=== PATIENT | female | born 1935 | race Two or more races ===

== ENCOUNTER 2022-04-08 12:13 | Emergency (ER) | payer MEDICAID ==
[~2022-04-08] VITALS: Ht 157.5 cm; Wt 75.0 kg
[2022-04-08 13:06] LABS: Basophils # (auto) 0 10 ^3/uL (0-0.2); Basophils % (auto) 0.7 % (0.0-2.0); Eosinophils # (auto) 0.1 10 ^3/uL (0-0.8); Eosinophils % (auto) 2.3 % (0.0-7.0); Hematocrit 33.3 % (36.0-46.0); Hemoglobin 10.7 g/dL (12.2-16.2); Lymphocytes # (auto) 1.7 10 ^3/uL (0.4-5.4); Lymphocytes % (auto) 34.3 % (10.0-50.0); Mean Corpuscular Hemoglobin 29.2 pg (28.0-32.0); Mean Corpuscular Hgb Conc. 32.1 g/dL (32.0-36.0); Mean Corpuscular Volume 90.9 fL (80.0-100.0); Monocytes # (auto) 0.4 10 ^3/uL (0-1.3); Monocytes % (auto) 7.4 % (0.0-12.0); Neutrophils # (auto) 2.7 10 ^3/uL (1.6-8.6); Neutrophils % (auto) 55.3 % (37.0-80.0); Nucleated Red Blood Cells % 0.1 %; Potassium 4.3 mmol/L (3.5-5.1); Red Blood Cells 3.67 10^6/uL (4.0-5.20); White Blood Cell 4.8 10^3/uL (4.4-10.8)
[2022-04-08 13:25] LABS: BUN/Creatinine Ratio 18.8; Bilirubin, Total 0.3 mg/dL (0.2-1.0); CRP High Sensitivity 0.24 mg/dL (< 0.3); Total Protein 7.6 g/dL (6.4-8.2)
[2022-04-08 14:59] VITALS: BP 139/69
== END 2022-04-08 15:00 | disposition home or self-care (01) ==
LOC: EDBD 12:13 → ER 12:13
DX: R51.9 Headache, unspecified (principal); H53.8 Other visual disturbances; I10 Essential (primary) hypertension
CPT/HCPCS: 36415; 70450; 80053; 85025; 85652; 86141; 93005

== ENCOUNTER 2022-07-12 07:59 | Emergency (ER) | payer MEDICAID ==
[~2022-07-12] VITALS: Ht 160 cm; Wt 76.6 kg
[2022-07-12 08:56] LABS: Basophils # (auto) 0 10 ^3/uL (0-0.2); Basophils % (auto) 0.5 % (0.0-2.0); Eosinophils # (auto) 0.1 10 ^3/uL (0-0.8); Eosinophils % (auto) 1.9 % (0.0-7.0); Hematocrit 31.6 % (36.0-46.0); Hemoglobin 10.3 g/dL (12.2-16.2); Lymphocytes # (auto) 1.7 10 ^3/uL (0.4-5.4); Lymphocytes % (auto) 26.2 % (10.0-50.0); Mean Corpuscular Hemoglobin 28.9 pg (28.0-32.0); Mean Corpuscular Hgb Conc. 32.4 g/dL (32.0-36.0); Mean Corpuscular Volume 89.2 fL (80.0-100.0); Monocytes # (auto) 0.5 10 ^3/uL (0-1.3); Monocytes % (auto) 7.2 % (0.0-12.0); Neutrophils # (auto) 4.1 10 ^3/uL (1.6-8.6); Neutrophils % (auto) 64.2 % (37.0-80.0); Nucleated Red Blood Cells % 0.1 %; Red Blood Cells 3.54 10^6/uL (4.0-5.20); Red Cell Distribution Width 14.8 % (11.8-14.3); White Blood Cell 6.3 10^3/uL (4.4-10.8)
[2022-07-12 09:11] LABS: INR 0.93 (0.9-1.15); Partial Thromboplastin Time 27.4 sec (24.6-33.4)
[2022-07-12 09:55] LABS: Potassium 4.7 mmol/L (3.5-5.1)
[2022-07-12 10:03] LABS: Albumin 3.5 g/dL (3.4-5.0); Bilirubin, Total 0.5 mg/dL (0.2-1.0); Calcium 8.7 mg/dL (8.5-10.1)
[2022-07-12 11:02] VITALS: BP 172/82
[2022-07-12 11:44] LABS: Urine Bacteria NONE SEEN /hpf (None Seen); Urine Blood 1+ /uL (Negative); Urine Specific Gravity 1.009 (1.001-1.035); Urine WBC 5 /hpf (0 - 5)
== END 2022-07-12 11:07 | disposition home or self-care (01) ==
LOC: ER 07:59
DX: R04.0 Epistaxis (principal); D64.9 Anemia, unspecified; R51.9 Headache, unspecified; J45.909 Unspecified asthma, uncomplicated; E11.9 Type 2 diabetes mellitus without complications; I10 Essential (primary) hypertension; Z88.6 Allergy status to analgesic agent
CPT/HCPCS: 36415; 70450; 80053; 81001; 84484; 85025; 85610; 85730

== ENCOUNTER 2022-07-27 10:36 | Emergency (ER) | payer MEDICAID ==
[~2022-07-27] VITALS: Ht 157.5 cm; Wt 81.8 kg
[2022-07-27] MEDS ORDERED: IOHEXOL 350 MG/ML 100ML IJ ONE (10:54)
[2022-07-27 11:20] LABS: Basophils # (auto) 0 10 ^3/uL (0-0.2); Basophils % (auto) 0.3 % (0.0-2.0); Eosinophils # (auto) 0.2 10 ^3/uL (0-0.8); Eosinophils % (auto) 2.2 % (0.0-7.0); Hematocrit 31.8 % (36.0-46.0); Hemoglobin 10.4 g/dL (12.2-16.2); Lymphocytes # (auto) 2.3 10 ^3/uL (0.4-5.4); Lymphocytes % (auto) 32.9 % (10.0-50.0); Mean Corpuscular Hemoglobin 29.3 pg (28.0-32.0); Mean Corpuscular Hgb Conc. 32.6 g/dL (32.0-36.0); Mean Corpuscular Volume 89.9 fL (80.0-100.0); Monocytes # (auto) 0.4 10 ^3/uL (0-1.3); Neutrophils # (auto) 4.1 10 ^3/uL (1.6-8.6); Neutrophils % (auto) 58.6 % (37.0-80.0); Red Blood Cells 3.54 10^6/uL (4.0-5.20); Red Cell Distribution Width 14.6 % (11.8-14.3); White Blood Cell 6.9 10^3/uL (4.4-10.8)
[2022-07-27 11:43] LABS: Albumin 3.8 g/dL (3.4-5.0); Calcium 9.3 mg/dL (8.5-10.1)
[2022-07-27 11:52] LABS: BUN/Creatinine Ratio 16.5 (10.0-20.0); Bilirubin, Total 0.3 mg/dL (0.2-1.0); Total Protein 6.8 g/dL (6.4-8.2)
[2022-07-27 12:46] LABS: Potassium 4.4 mmol/L (3.5-5.1)
[2022-07-27] MEDS ORDERED: HYDROcodone-ACET 5/325MG TAB PO ONE (15:15)
[2022-07-27] MEDS ORDERED: KETOROLAC TROMETH 60MG/2ML VIAL IV ONE (16:00)
[2022-07-27 18:42] VITALS: BP 130/69
== END 2022-07-27 18:46 | disposition home or self-care (01) ==
LOC: EDBD 10:36 → ER 10:36 → EDSEX 10:36 → ER 18:46
DX: S00.33XA Contusion of nose, initial encounter (principal); S00.83XA Contusion of other part of head, initial encounter; S20.212A Contusion of left front wall of thorax, initial encounter; R07.89 Other chest pain; R04.0 Epistaxis; M54.2 Cervicalgia; E07.9 Disorder of thyroid, unspecified; R06.02 Shortness of breath; Z88.5 Allergy status to narcotic agent; Z79.899 Other long term (current) drug therapy; V43.62XA Car passenger injured in collision with other type car in traffic accident, initial encounter; Y93.89 Activity, other specified; Y92.488 Other paved roadways as the place of occurrence of the external cause; Y99.8 Other external cause status
CPT/HCPCS: 36415; 70450; 71260; 72125; 74177; 80053; 83735; 83880; 84484; 85025; 93005; 96374; 99285; J1885; J7030; Q9967

== ENCOUNTER 2022-09-26 12:24 | Inpatient (IN) | payer MEDICAID ==
[~2022-09-26] VITALS: Ht 147.3 cm; Wt 78.6 kg
[~2022-09-26 12:24] MED LIST: AMBR10TA4 PO; AMLO1TAB22 PO; AZIT-43 PO; BENA40TA83 PO; ESCI10TA PO; FURO1TAB33 PO; OMEP20TA PO; RIOC1TAB14 PO
[2022-09-26 13:35] LABS: Basophils # (auto) 0 10 ^3/uL (0-0.2); Basophils % (auto) 0.7 % (0.0-2.0); Eosinophils # (auto) 0.1 10 ^3/uL (0-0.8); Hematocrit 30.1 % (36.0-46.0); Hemoglobin 9.7 g/dL (12.2-16.2); Lymphocytes # (auto) 1.2 10 ^3/uL (0.4-5.4); Lymphocytes % (auto) 20.4 % (10.0-50.0); Mean Corpuscular Hemoglobin 28.6 pg (28.0-32.0); Mean Corpuscular Hgb Conc. 32.2 g/dL (32.0-36.0); Mean Corpuscular Volume 88.8 fL (80.0-100.0); Monocytes # (auto) 0.3 10 ^3/uL (0-1.3); Monocytes % (auto) 5.4 % (0.0-12.0); Neutrophils # (auto) 4.1 10 ^3/uL (1.6-8.6); Neutrophils % (auto) 71.5 % (37.0-80.0); Nucleated Red Blood Cells % 0.1 %; Red Blood Cells 3.39 10^6/uL (4.0-5.20); Red Cell Distribution Width 14.1 % (11.8-14.3); White Blood Cell 5.8 10^3/uL (4.4-10.8)
[2022-09-26 14:18] LABS: Potassium 4.5 mmol/L (3.5-5.1)
[2022-09-26 14:26] LABS: Albumin 3.5 g/dL (3.4-5.0); BUN/Creatinine Ratio 14.7 (10.0-20.0); Bilirubin, Total 0.2 mg/dL (0.2-1.0); Calcium 8.1 mg/dL (8.5-10.1); Total Protein 6.4 g/dL (6.4-8.2)
[2022-09-26] MEDS ORDERED: FUROSEMIDE 40 MG/4 ML VIAL IV ONE (16:00)
[2022-09-26] MEDS ORDERED: MORPHINE SULFATE INJ 2 MG/ml SYRG IV PRN ×2 (17:45→18:30)
[2022-09-26] MEDS ORDERED: DOCUSATE SOD 100 MG CAP PO PRN (17:45)
[2022-09-26] MEDS ORDERED: ONDANSETRON HCL 4 MG/2 ML VIAL IV PRN (17:45)
[2022-09-26] MEDS ORDERED: ALBUTEROL SULF 2.5 MG/0.5ML(0.5%) NEB SOLN NEB PRN (17:45)
[2022-09-26] MEDS ORDERED: HYDROcodone-ACET 5/325MG TAB PO PRN (17:45)
[2022-09-26] MEDS ORDERED: IPRATROPIUM BROM 0.5 MG/2.5ML INH SOL NEB PRN (17:45)
[2022-09-26] MEDS ORDERED: NITROGLYCERIN 0.4 MG SL TAB SL PRN (17:45)
[2022-09-26] MEDS ORDERED: ACETAMINOPHEN 325 MG TAB PO PRN (17:45)
[2022-09-26 18:00] VITALS: BP 116/56
[2022-09-26] MEDS: SODIUM CHLOR 0.9% PF (SALINE LOCK) 10ML VIAL/SYR IV SCH (21:02)
[2022-09-27] MEDS: SODIUM CHLOR 0.9% PF (SALINE LOCK) 10ML VIAL/SYR IV SCH ×3 (06:30→22:26)
[2022-09-27 06:42] LABS: Albumin 3.3 g/dL (3.4-5.0); Basophils # (auto) 0 10 ^3/uL (0-0.2); Basophils % (auto) 0.8 % (0.0-2.0); Calcium 8.2 mg/dL (8.5-10.1); Eosinophils # (auto) 0.1 10 ^3/uL (0-0.8); Eosinophils % (auto) 2.1 % (0.0-7.0); Hematocrit 28.7 % (36.0-46.0); Hemoglobin 9.3 g/dL (12.2-16.2); Lymphocytes # (auto) 1.5 10 ^3/uL (0.4-5.4); Lymphocytes % (auto) 24.8 % (10.0-50.0); Mean Corpuscular Hemoglobin 28.4 pg (28.0-32.0); Mean Corpuscular Hgb Conc. 32.4 g/dL (32.0-36.0); Mean Corpuscular Volume 87.6 fL (80.0-100.0); Monocytes # (auto) 0.4 10 ^3/uL (0-1.3); Monocytes % (auto) 7.4 % (0.0-12.0); Neutrophils # (auto) 3.9 10 ^3/uL (1.6-8.6); Neutrophils % (auto) 64.9 % (37.0-80.0); Potassium 4.1 mmol/L (3.5-5.1); Red Blood Cells 3.27 10^6/uL (4.0-5.20); Red Cell Distribution Width 13.8 % (11.8-14.3)
[2022-09-27 06:45] LABS: BUN/Creatinine Ratio 16.2 (10.0-20.0); Bilirubin, Total 0.3 mg/dL (0.2-1.0); Total Protein 6.4 g/dL (6.4-8.2)
[2022-09-27] MEDS: cefTRIAXone 1GM/50ML D5W 50 ML IV SCH (09:12)
[2022-09-27] MEDS: AMBRISENTAN 10 MG PO SCH (10:00)
[2022-09-27] MEDS: AZITHROMYCIN 500MG/ 250ML 250 ML IV SCH (10:12)
[2022-09-27] MEDS: amLODIPine BESYLATE 5 MG TAB PO SCH (10:14)
[2022-09-27] MEDS: CITALOPRAM HYDROBR 20 MG TAB PO SCH (10:14)
[2022-09-27] MEDS: LISINOPRIL 20 MG TAB PO SCH (10:14)
[2022-09-27] MEDS: FUROSEMIDE 20 MG TAB PO SCH (10:14)
[2022-09-27 17:00] VITALS: BP 143/48
[2022-09-27 21:52] VITALS: BP 134/50
[2022-09-27] MEDS ORDERED: TEMAZEPAM 15 MG CAP PO PRN (22:45)
[2022-09-28 04:30] VITALS: BP 135/45
[2022-09-28] MEDS: SODIUM CHLOR 0.9% PF (SALINE LOCK) 10ML VIAL/SYR IV SCH ×3 (06:12→22:15)
[2022-09-28 07:00] LABS: Basophils # (auto) 0 10 ^3/uL (0-0.2); Basophils % (auto) 0.7 % (0.0-2.0); Eosinophils # (auto) 0.1 10 ^3/uL (0-0.8); Eosinophils % (auto) 2.5 % (0.0-7.0); Hematocrit 28.6 % (36.0-46.0); Hemoglobin 9.4 g/dL (12.2-16.2); Lymphocytes # (auto) 1.5 10 ^3/uL (0.4-5.4); Mean Corpuscular Hgb Conc. 32.8 g/dL (32.0-36.0); Mean Corpuscular Volume 88.4 fL (80.0-100.0); Monocytes # (auto) 0.4 10 ^3/uL (0-1.3); Monocytes % (auto) 8.1 % (0.0-12.0); Neutrophils # (auto) 2.7 10 ^3/uL (1.6-8.6); Neutrophils % (auto) 57.7 % (37.0-80.0); Nucleated Red Blood Cells % 0.1 %; Red Blood Cells 3.24 10^6/uL (4.0-5.20); Red Cell Distribution Width 13.5 % (11.8-14.3); White Blood Cell 4.7 10^3/uL (4.4-10.8)
[2022-09-28 07:13] LABS: BUN/Creatinine Ratio 20.6 (10.0-20.0); Calcium 8.4 mg/dL (8.5-10.1); Potassium 3.9 mmol/L (3.5-5.1)
[2022-09-28 08:00] VITALS: BP 154/63
[2022-09-28] MEDS: CITALOPRAM HYDROBR 20 MG TAB PO SCH (09:26)
[2022-09-28] MEDS: LISINOPRIL 20 MG TAB PO SCH (09:27)
[2022-09-28] MEDS: FUROSEMIDE 20 MG TAB PO SCH (09:27)
[2022-09-28] MEDS: AZITHROMYCIN 500MG/ 250ML 250 ML IV SCH (09:28)
[2022-09-28] MEDS: amLODIPine BESYLATE 5 MG TAB PO SCH (09:28)
[2022-09-28] MEDS: cefTRIAXone 1GM/50ML D5W 50 ML IV SCH (09:28)
[2022-09-28] MEDS: AMBRISENTAN 10 MG PO SCH (09:36)
[2022-09-28 12:00] VITALS: BP 147/57
[2022-09-28] MEDS ORDERED: DexAMETHasone SOD PHOS 10MG/1ML VIAL INJ IV ONE (14:15)
[2022-09-28 16:00] VITALS: BP 130/63
[2022-09-28 20:00] VITALS: BP 150/68
[2022-09-28 22:00] VITALS: BP 150/68
[2022-09-29 05:00] VITALS: BP 158/69
[2022-09-29] MEDS: SODIUM CHLOR 0.9% PF (SALINE LOCK) 10ML VIAL/SYR IV SCH ×3 (06:15→22:00)
[2022-09-29 06:30] LABS: Basophils # (auto) 0 10 ^3/uL (0-0.2); Basophils % (auto) 0.2 % (0.0-2.0); Eosinophils # (auto) 0 10 ^3/uL (0-0.8); Hematocrit 31.2 % (36.0-46.0); Hemoglobin 10.3 g/dL (12.2-16.2); Lymphocytes # (auto) 0.9 10 ^3/uL (0.4-5.4); Lymphocytes % (auto) 18.2 % (10.0-50.0); Mean Corpuscular Hemoglobin 28.7 pg (28.0-32.0); Monocytes # (auto) 0.1 10 ^3/uL (0-1.3); Monocytes % (auto) 1.7 % (0.0-12.0); Neutrophils # (auto) 4.1 10 ^3/uL (1.6-8.6); Neutrophils % (auto) 79.9 % (37.0-80.0); Nucleated Red Blood Cells % 0.2 %; Red Blood Cells 3.59 10^6/uL (4.0-5.20); Red Cell Distribution Width 13.5 % (11.8-14.3); White Blood Cell 5.1 10^3/uL (4.4-10.8)
[2022-09-29 06:44] LABS: BUN/Creatinine Ratio 28.8 (10.0-20.0); Calcium 8.7 mg/dL (8.5-10.1); Potassium 4.1 mmol/L (3.5-5.1)
[2022-09-29 09:00] VITALS: BP 115/61
[2022-09-29] MEDS: FUROSEMIDE 20 MG TAB PO SCH (09:35)
[2022-09-29] MEDS: cefTRIAXone 1GM/50ML D5W 50 ML IV SCH (09:35)
[2022-09-29] MEDS: AZITHROMYCIN 500MG/ 250ML 250 ML IV SCH (09:35)
[2022-09-29] MEDS: CITALOPRAM HYDROBR 20 MG TAB PO SCH (09:35)
[2022-09-29] MEDS: amLODIPine BESYLATE 5 MG TAB PO SCH (09:36)
[2022-09-29] MEDS: DexAMETHasone SOD PHOS 10MG/1ML VIAL INJ IV SCH (09:36)
[2022-09-29] MEDS: AMBRISENTAN 10 MG PO SCH (09:36)
[2022-09-29] MEDS: LISINOPRIL 20 MG TAB PO SCH (09:36)
[2022-09-29 17:00] VITALS: BP 145/58
[2022-09-29 20:00] VITALS: BP 110/57
[2022-09-29 22:00] VITALS: BP 142/51
[2022-09-30 05:00] VITALS: BP 184/85
[2022-09-30] MEDS ORDERED: hydrALAZINE HCL 20 MG/ML VL IV PRN (05:00)
[2022-09-30] MEDS: SODIUM CHLOR 0.9% PF (SALINE LOCK) 10ML VIAL/SYR IV SCH ×2 (05:19→14:00)
[2022-09-30 06:17] LABS: Basophils # (auto) 0 10 ^3/uL (0-0.2); Basophils % (auto) 0.2 % (0.0-2.0); Eosinophils # (auto) 0 10 ^3/uL (0-0.8); Hemoglobin 11.2 g/dL (12.2-16.2); Lymphocytes # (auto) 1.5 10 ^3/uL (0.4-5.4); Lymphocytes % (auto) 17.4 % (10.0-50.0); Mean Corpuscular Hemoglobin 28.7 pg (28.0-32.0); Mean Corpuscular Hgb Conc. 33.1 g/dL (32.0-36.0); Mean Corpuscular Volume 86.6 fL (80.0-100.0); Monocytes # (auto) 0.5 10 ^3/uL (0-1.3); Monocytes % (auto) 6.1 % (0.0-12.0); Neutrophils # (auto) 6.7 10 ^3/uL (1.6-8.6); Neutrophils % (auto) 76.3 % (37.0-80.0); Red Blood Cells 3.92 10^6/uL (4.0-5.20); Red Cell Distribution Width 13.5 % (11.8-14.3); White Blood Cell 8.8 10^3/uL (4.4-10.8)
[2022-09-30 06:28] LABS: Potassium 4.1 mmol/L (3.5-5.1)
[2022-09-30 06:41] LABS: Calcium 8.8 mg/dL (8.5-10.1)
[2022-09-30 09:00] VITALS: BP 152/52
[2022-09-30] MEDS: AMBRISENTAN 10 MG PO SCH (10:00)
[2022-09-30] MEDS: cefTRIAXone 1GM/50ML D5W 50 ML IV SCH (10:02)
[2022-09-30] MEDS: AZITHROMYCIN 500MG/ 250ML 250 ML IV SCH (10:04)
[2022-09-30] MEDS: DexAMETHasone SOD PHOS 10MG/1ML VIAL INJ IV SCH (10:05)
[2022-09-30] MEDS: LISINOPRIL 20 MG TAB PO SCH (10:06)
[2022-09-30] MEDS: FUROSEMIDE 20 MG TAB PO SCH (10:06)
[2022-09-30] MEDS: CITALOPRAM HYDROBR 20 MG TAB PO SCH (10:06)
[2022-09-30] MEDS: amLODIPine BESYLATE 5 MG TAB PO SCH (10:07)
[2022-09-30] MEDS ORDERED: AMOX500T86 PO (12:25)
[2022-09-30] MEDS ORDERED: PRED20TA2 PO (12:25)
[2022-09-30 13:00] VITALS: BP 136/74
== END 2022-09-30 16:30 | disposition home or self-care (01) | DRG 137 ==
LOC: ER 12:24 → TELE 17:55 → TELE-CENTR 09-27 16:17
PROVIDERS: ADMIT Nurse Practitioner Family; ATTEND Internal Medicine Pulmonary Disease
DX: J15.6 Pneumonia due to other Gram-negative bacteria (principal); I27.20 Pulmonary hypertension, unspecified; J96.11 Chronic respiratory failure with hypoxia; J44.1 Chronic obstructive pulmonary disease with (acute) exacerbation; I11.0 Hypertensive heart disease with heart failure; I50.32 Chronic diastolic (congestive) heart failure; J44.0 Chronic obstructive pulmonary disease with (acute) lower respiratory infection; E66.01 Morbid (severe) obesity due to excess calories; E11.9 Type 2 diabetes mellitus without complications; Z88.6 Allergy status to analgesic agent; Z90.49 Acquired absence of other specified parts of digestive tract; Z68.36 Body mass index [BMI] 36.0-36.9, adult; Z88.8 Allergy status to other drugs, medicaments and biological substances
CPT/HCPCS: 36415; 71045; 78452; 80048; 80053; 83880; 84484; 85025; 87081; 93005; 93017; 99291; G0378; J0696; J1100

== ENCOUNTER 2022-12-06 11:01 | Inpatient (IN) | payer MEDICAID ==
[~2022-12-06] VITALS: Ht 160 cm; Wt 85.0 kg
[~2022-12-06 11:01] MED LIST changes: +AMOX500T86 PO; -AZIT-43 PO; +PRED20TA2 PO
[2022-12-06 11:57] LABS: Base Excess 3.8 mmol/L (-2.0-2.0)
[2022-12-06 12:10] LABS: Basophils # (auto) 0 10 ^3/uL (0-0.2); Basophils % (auto) 0.5 % (0.0-2.0); Eosinophils # (auto) 0.2 10 ^3/uL (0-0.8); Hemoglobin 8.3 g/dL (12.2-16.2); Lymphocytes # (auto) 1.1 10 ^3/uL (0.4-5.4); Monocytes # (auto) 0.4 10 ^3/uL (0-1.3); Neutrophils # (auto) 3.5 10 ^3/uL (1.6-8.6); Red Cell Distribution Width 15.1 % (11.8-14.3); White Blood Cell 5.2 10^3/uL (4.4-10.8)
[2022-12-06 12:12] LABS: Eosinophils % (auto) 3.5 % (0.0-7.0); Hematocrit 25.7 % (36.0-46.0); Lymphocytes % (auto) 20.5 % (10.0-50.0); Mean Corpuscular Hgb Conc. 32.4 g/dL (32.0-36.0); Mean Corpuscular Volume 86.6 fL (80.0-100.0); Monocytes % (auto) 7.8 % (0.0-12.0); Neutrophils % (auto) 67.7 % (37.0-80.0); Red Blood Cells 2.97 10^6/uL (4.0-5.20)
[2022-12-06] MEDS ORDERED: FUROSEMIDE 20 MG/2 ML VIAL IV ONE (12:15)
[2022-12-06] MEDS ORDERED: ASPirin-EC 325mg tab PO ONE (12:15)
[2022-12-06 12:25] LABS: INR 0.98 (0.9-1.15); Prothrombin Time 10.3 sec (9.3-11.8)
[2022-12-06 12:47] LABS: Albumin 3.9 g/dL (3.2-4.8); Alkaline Phosphatase 29 U/L (46-116); Anion Gap 3.2 (5-15); Aspartate Aminotransferase 9 U/L (13-40); Bilirubin, Total 0.4 mg/dL (0.2-1.0); Blood Urea Nitrogen 16 mg/dL (9-23); Calcium 8.7 mg/dL (8.5-10.1); Carbon Dioxide 31.8 mmol/L (20-30); Chloride 100 mmol/L (98-107); Glucose 100 mg/dL (74-106); Potassium 4.7 mmol/L (3.5-5.1); Sodium 135 mmol/L (136-145); Total Protein 5.9 g/dL (5.7-8.2)
[2022-12-06 12:55] LABS: Alanine Aminotransferase < 9 U/L (7-40)
[2022-12-06 13:13] VITALS: PULSE 85; RESP 18; O2SAT 94
[2022-12-06 13:51] LABS: Urine Bacteria FEW /hpf (None Seen); Urine Blood Negative /uL (Negative); Urine Clarity Clear (Clear); Urine Color Colorless (Yellow); Urine Protein, UAD Negative (Negative); Urine Specific Gravity 1.004 (1.001-1.035); Urine Urobilinogen Normal (Negative); Urine WBC 1 /hpf (0 - 5); Urine pH 5.5 (5.0-8.0)
[2022-12-06] MEDS ORDERED: ALBUTEROL SULF 2.5 MG/0.5ML(0.5%) NEB SOLN NEB PRN (14:30)
[2022-12-06] MEDS ORDERED: NITROGLYCERIN 0.4 MG SL TAB SL PRN (14:30)
[2022-12-06] MEDS ORDERED: DEXTROSE (50%) 50ML SYRG IV PRN (14:30)
[2022-12-06] MEDS ORDERED: AZITHROMYCIN 500MG/ 250ML 250 ML IV ONE (14:30)
[2022-12-06] MEDS ORDERED: MORPHINE SULFATE INJ 2 MG/ml SYRG IV PRN (14:30)
[2022-12-06] MEDS ORDERED: cefTRIAXone 1GM/50ML D5W 50 ML IV ONE (14:30)
[2022-12-06 14:38] VITALS: BP 156/69; PULSE 90; RESP 18; TEMP 98; O2SAT 96
[2022-12-06 15:38] LABS: COVID19 ANTIGEN SOFIA FIA NEGATIVE (NEGATIVE)
[2022-12-06 15:41] LABS: Respiratory Syncytial Virus Ag Negative
[2022-12-06 15:42] LABS: Rapid Influenza A Negative (Negative); Rapid Influenza B Negative (Negative)
[2022-12-06 16:06] LABS: LDL Cholesterol 109 mg/dL (< 100); Triglycerides 119 mg/dL (< 150)
[2022-12-06 16:08] LABS: Cholesterol 199 mg/dL (< 200); HDL Cholesterol 64 mg/dL (40-59)
[2022-12-06] MEDS: ACCU-CHEK COMFORT CURVE STRIP VI SCH ×2 (17:30→22:00)
[2022-12-06] MEDS: InsuLIN REG 1unit/0.01ml Soln (100units/ml) SC SCH ×2 (17:30→22:00)
[2022-12-06 17:40] LABS: Anisocytosis Slight; Platelet Estimate Adequate
[2022-12-06] MEDS: IPRATROPIUM BROM 0.5 MG/2.5ML INH SOL NEB SCH ×2 (18:50→22:38)
[2022-12-06] MEDS: ALBUTEROL SULF 2.5 MG/0.5ML(0.5%) NEB SOLN NEB SCH ×2 (18:50→22:39)
[2022-12-06 19:31] VITALS: PULSE 81; RESP 19; O2SAT 95
[2022-12-06] MEDS: AMBRISENTAN 10 MG PO SCH (22:00)
[2022-12-06 22:39] VITALS: PULSE 83; RESP 18; O2SAT 94
[2022-12-06 22:45] VITALS: PULSE 78; RESP 18; O2SAT 100
[2022-12-07] VITALS (16 sets, daily range): BP systolic 104–138; BP diastolic 32–75; PULSE 61–97; RESP 16–22; TEMP 97.7–98.8; O2SAT 90–100
[2022-12-07] MEDS: IPRATROPIUM BROM 0.5 MG/2.5ML INH SOL NEB SCH ×6 (02:00→22:44)
[2022-12-07] MEDS: ALBUTEROL SULF 2.5 MG/0.5ML(0.5%) NEB SOLN NEB SCH ×6 (02:00→22:43)
[2022-12-07 06:56] LABS: Basophils # (auto) 0 10 ^3/uL (0-0.2); Eosinophils # (auto) 0.2 10 ^3/uL (0-0.8); Hemoglobin 8.4 g/dL (12.2-16.2); Lymphocytes # (auto) 1.5 10 ^3/uL (0.4-5.4); Monocytes # (auto) 0.5 10 ^3/uL (0-1.3); Nucleated Red Blood Cells % 0.1 %
[2022-12-07 06:58] LABS: Basophils % (auto) 0.5 % (0.0-2.0); Eosinophils % (auto) 3.7 % (0.0-7.0); Hematocrit 25.4 % (36.0-46.0); Lymphocytes % (auto) 28.3 % (10.0-50.0); Mean Corpuscular Hemoglobin 28.5 pg (28.0-32.0); Mean Corpuscular Volume 86.4 fL (80.0-100.0); Monocytes % (auto) 10.1 % (0.0-12.0); Neutrophils % (auto) 57.4 % (37.0-80.0); Red Blood Cells 2.94 10^6/uL (4.0-5.20); Red Cell Distribution Width 15.1 % (11.8-14.3); White Blood Cell 5.2 10^3/uL (4.4-10.8)
[2022-12-07 07:31] LABS: Albumin 3.8 g/dL (3.2-4.8); Alkaline Phosphatase 25 U/L (46-116); Anion Gap 1.9 (5-15); Aspartate Aminotransferase 20 U/L (13-40); Blood Urea Nitrogen 12 mg/dL (9-23); Calcium 8.6 mg/dL (8.5-10.1); Carbon Dioxide 36.1 mmol/L (20-30); Chloride 100 mmol/L (98-107); Glucose 89 mg/dL (74-106); Potassium 4.8 mmol/L (3.5-5.1); Sodium 138 mmol/L (136-145)
[2022-12-07 07:32] LABS: Bilirubin, Total 0.4 mg/dL (0.2-1.0); Total Protein 5.9 g/dL (5.7-8.2)
[2022-12-07 07:34] LABS: Alanine Aminotransferase < 9 U/L (7-40)
[2022-12-07] MEDS: InsuLIN REG 1unit/0.01ml Soln (100units/ml) SC SCH ×4 (08:39→21:53)
[2022-12-07] MEDS: ACCU-CHEK COMFORT CURVE STRIP VI SCH ×4 (08:39→21:52)
[2022-12-07] MEDS: BENAZEPRIL HCL 10 MG TAB PO SCH (11:02)
[2022-12-07] MEDS: amLODIPine BESYLATE 5 MG TAB PO SCH (11:02)
[2022-12-07] MEDS: ASPirin 81 mg TAB PO SCH (11:02)
[2022-12-07] MEDS: PANTOPRAZOLE 40 MG TAB PO SCH (11:03)
[2022-12-07] MEDS: AMBRISENTAN 10 MG PO SCH (11:04)
[2022-12-07] MEDS: ENOXAPARIN SOD 40 MG/0.4 ML SYRINGE SC SCH (11:05)
[2022-12-07] MEDS: AZITHROMYCIN 500MG/ 250ML 250 ML IV SCH (11:07)
[2022-12-07] MEDS: cefTRIAXone 1GM/50ML D5W 50 ML IV SCH (11:07)
[2022-12-07] MEDS: FUROSEMIDE 20 MG/2 ML VIAL IV SCH (11:07)
[2022-12-07] MEDS: Escitalopram Oxalate (Lexapro) 10 MG TABLET PO SCH (11:08)
[2022-12-07] MEDS ORDERED: methylPREDNISolone SOD SUCC 40 MG/ML VL IV ONE (15:00)
[2022-12-07] MEDS: ACETAMINOPHEN 325 MG TAB PO PRN (16:40)
[2022-12-07 18:36] LABS: % Iron Saturation 15.7 % (15-50)
[2022-12-07] MEDS: methylPREDNISolone SOD SUCC 40 MG/ML VL IV SCH (21:24)
[2022-12-08] VITALS (19 sets, daily range): BP systolic 110–132; BP diastolic 39–76; PULSE 65–99; RESP 16–20; TEMP 97.9–98.6; O2SAT 96–100
[2022-12-08] MEDS: ALBUTEROL SULF 2.5 MG/0.5ML(0.5%) NEB SOLN NEB SCH ×6 (02:24→22:51)
[2022-12-08] MEDS: IPRATROPIUM BROM 0.5 MG/2.5ML INH SOL NEB SCH ×6 (02:24→22:50)
[2022-12-08] MEDS: methylPREDNISolone SOD SUCC 40 MG/ML VL IV SCH ×3 (06:09→21:27)
[2022-12-08] MEDS: ACCU-CHEK COMFORT CURVE STRIP VI SCH ×4 (06:17→21:28)
[2022-12-08] MEDS: InsuLIN REG 1unit/0.01ml Soln (100units/ml) SC SCH ×4 (06:26→22:15)
[2022-12-08 07:16] LABS: Basophils # (auto) 0 10 ^3/uL (0-0.2); Basophils % (auto) 0.2 % (0.0-2.0); Eosinophils # (auto) 0 10 ^3/uL (0-0.8); Hematocrit 26.5 % (36.0-46.0); Hemoglobin 8.6 g/dL (12.2-16.2); Lymphocytes # (auto) 0.6 10 ^3/uL (0.4-5.4); Lymphocytes % (auto) 9.7 % (10.0-50.0); Mean Corpuscular Hemoglobin 28.3 pg (28.0-32.0); Mean Corpuscular Hgb Conc. 32.5 g/dL (32.0-36.0); Mean Corpuscular Volume 87.1 fL (80.0-100.0); Monocytes # (auto) 0.1 10 ^3/uL (0-1.3); Monocytes % (auto) 1.1 % (0.0-12.0); Neutrophils # (auto) 5.3 10 ^3/uL (1.6-8.6); Red Blood Cells 3.05 10^6/uL (4.0-5.20)
[2022-12-08 07:55] LABS: Albumin 3.8 g/dL (3.2-4.8); Alkaline Phosphatase 27 U/L (46-116); Anion Gap 2.7 (5-15); Aspartate Aminotransferase 11 U/L (13-40); BUN/Creatinine Ratio 22.1 (10.0-20.0); Blood Urea Nitrogen 23 mg/dL (9-23); Calcium 8.7 mg/dL (8.5-10.1); Carbon Dioxide 34.3 mmol/L (20-30); Chloride 100 mmol/L (98-107); Glucose 188 mg/dL (74-106); Potassium 4.7 mmol/L (3.5-5.1); Sodium 137 mmol/L (136-145)
[2022-12-08 07:56] LABS: Bilirubin, Total 0.3 mg/dL (0.2-1.0); Total Protein 6.1 g/dL (5.7-8.2)
[2022-12-08 08:00] LABS: Alanine Aminotransferase < 9 U/L (7-40)
[2022-12-08] MEDS: cefTRIAXone 1GM/50ML D5W 50 ML IV SCH (09:50)
[2022-12-08] MEDS: AMBRISENTAN 10 MG PO SCH (09:51)
[2022-12-08] MEDS: Escitalopram Oxalate (Lexapro) 10 MG TABLET PO SCH (09:51)
[2022-12-08] MEDS: ENOXAPARIN SOD 40 MG/0.4 ML SYRINGE SC SCH (09:52)
[2022-12-08] MEDS: FUROSEMIDE 20 MG/2 ML VIAL IV SCH ×2 (09:52→21:27)
[2022-12-08] MEDS: ASPirin 81 mg TAB PO SCH (09:53)
[2022-12-08] MEDS: PANTOPRAZOLE 40 MG TAB PO SCH (09:53)
[2022-12-08] MEDS: amLODIPine BESYLATE 5 MG TAB PO SCH (09:53)
[2022-12-08] MEDS: BENAZEPRIL HCL 10 MG TAB PO SCH (10:00)
[2022-12-08] MEDS: AZITHROMYCIN 500MG/ 250ML 250 ML IV SCH (11:19)
[2022-12-08] MEDS ORDERED: guaiFENesin-DM 100/10mg/5ml SYR PO PRN (11:30)
[2022-12-08] MEDS ORDERED: guaiFENesin-DM 100/10mg/5ml SYR PO ONE (11:30)
[2022-12-08] MEDS: ACETAMINOPHEN 325 MG TAB PO PRN ×2 (16:14→21:54)
[2022-12-09] VITALS (21 sets, daily range): BP systolic 113–150; BP diastolic 38–74; PULSE 75–95; RESP 14–18; TEMP 98.1–99; O2SAT 95–100
[2022-12-09] MEDS: IPRATROPIUM BROM 0.5 MG/2.5ML INH SOL NEB SCH ×6 (03:08→22:19)
[2022-12-09] MEDS: ALBUTEROL SULF 2.5 MG/0.5ML(0.5%) NEB SOLN NEB SCH ×6 (03:08→22:19)
[2022-12-09] MEDS: FUROSEMIDE 20 MG/2 ML VIAL IV SCH ×2 (05:24→19:09)
[2022-12-09] MEDS: methylPREDNISolone SOD SUCC 40 MG/ML VL IV SCH ×3 (05:24→23:49)
[2022-12-09] MEDS: ACCU-CHEK COMFORT CURVE STRIP VI SCH ×4 (05:26→23:47)
[2022-12-09] MEDS: InsuLIN REG 1unit/0.01ml Soln (100units/ml) SC SCH ×4 (05:45→23:48)
[2022-12-09 08:35] LABS: Basophils # (auto) 0 10 ^3/uL (0-0.2); Eosinophils # (auto) 0 10 ^3/uL (0-0.8); Hematocrit 27.8 % (36.0-46.0); Hemoglobin 8.7 g/dL (12.2-16.2); Lymphocytes # (auto) 0.8 10 ^3/uL (0.4-5.4); Lymphocytes % (auto) 5.7 % (10.0-50.0); Mean Corpuscular Hemoglobin 27.3 pg (28.0-32.0); Mean Corpuscular Hgb Conc. 31.5 g/dL (32.0-36.0); Mean Corpuscular Volume 86.6 fL (80.0-100.0); Monocytes # (auto) 0.4 10 ^3/uL (0-1.3); Monocytes % (auto) 3.2 % (0.0-12.0); Neutrophils # (auto) 12.5 10 ^3/uL (1.6-8.6); Neutrophils % (auto) 91.1 % (37.0-80.0); Nucleated Red Blood Cells % 0.1 %; Red Blood Cells 3.21 10^6/uL (4.0-5.20); Red Cell Distribution Width 15.3 % (11.8-14.3); White Blood Cell 13.8 10^3/uL (4.4-10.8)
[2022-12-09 08:52] LABS: Chloride 95 mmol/L (98-107); Potassium 4.4 mmol/L (3.5-5.1); Sodium 135 mmol/L (136-145)
[2022-12-09 08:53] LABS: Anion Gap 6.6 (5-15); Carbon Dioxide 33.4 mmol/L (20-30)
[2022-12-09 08:54] LABS: Calcium 9.1 mg/dL (8.5-10.1)
[2022-12-09 08:58] LABS: BUN/Creatinine Ratio 30.9 (10.0-20.0); Blood Urea Nitrogen 29 mg/dL (9-23); Glucose 160 mg/dL (74-106)
[2022-12-09] MEDS: cefTRIAXone 1GM/50ML D5W 50 ML IV SCH (09:43)
[2022-12-09] MEDS: BENAZEPRIL HCL 10 MG TAB PO SCH (09:46)
[2022-12-09] MEDS: ASPirin 81 mg TAB PO SCH (09:46)
[2022-12-09] MEDS: amLODIPine BESYLATE 5 MG TAB PO SCH (09:46)
[2022-12-09] MEDS: ENOXAPARIN SOD 40 MG/0.4 ML SYRINGE SC SCH (09:47)
[2022-12-09] MEDS: PANTOPRAZOLE 40 MG TAB PO SCH (09:47)
[2022-12-09] MEDS: AZITHROMYCIN 500MG/ 250ML 250 ML IV SCH (09:48)
[2022-12-09] MEDS: AMBRISENTAN 10 MG PO SCH (09:48)
[2022-12-09] MEDS: Escitalopram Oxalate (Lexapro) 10 MG TABLET PO SCH (09:48)
[2022-12-10] VITALS (10 sets, daily range): BP systolic 130–148; BP diastolic 46–70; PULSE 78–89; RESP 16–20; TEMP 98–98.5; O2SAT 96–100
[2022-12-10] MEDS ORDERED: ALBUTEROL SULF 2.5 MG/0.5ML(0.5%) NEB SOLN NEB PRN (02:00)
[2022-12-10] MEDS ORDERED: IPRATROPIUM BROM 0.5 MG/2.5ML INH SOL NEB PRN (02:00)
[2022-12-10] MEDS: methylPREDNISolone SOD SUCC 40 MG/ML VL IV SCH ×3 (05:13→22:12)
[2022-12-10] MEDS: FUROSEMIDE 20 MG/2 ML VIAL IV SCH ×2 (05:16→18:09)
[2022-12-10] MEDS: InsuLIN REG 1unit/0.01ml Soln (100units/ml) SC SCH ×4 (06:11→22:16)
[2022-12-10] MEDS: ACCU-CHEK COMFORT CURVE STRIP VI SCH ×4 (06:13→22:12)
[2022-12-10] MEDS: AZITHROMYCIN 500MG/ 250ML 250 ML IV SCH (10:00)
[2022-12-10] MEDS: amLODIPine BESYLATE 5 MG TAB PO SCH (10:00)
[2022-12-10] MEDS: Escitalopram Oxalate (Lexapro) 10 MG TABLET PO SCH (10:00)
[2022-12-10] MEDS: cefTRIAXone 1GM/50ML D5W 50 ML IV SCH (10:02)
[2022-12-10 10:03] LABS: Basophils # (auto) 0 10 ^3/uL (0-0.2); Eosinophils # (auto) 0 10 ^3/uL (0-0.8); Hemoglobin 8.5 g/dL (12.2-16.2); Lymphocytes # (auto) 0.5 10 ^3/uL (0.4-5.4); Lymphocytes % (auto) 5.2 % (10.0-50.0); Nucleated Red Blood Cells % 0.1 %
[2022-12-10 10:05] LABS: Hematocrit 27.3 % (36.0-46.0); Mean Corpuscular Hemoglobin 27.1 pg (28.0-32.0); Mean Corpuscular Volume 87.4 fL (80.0-100.0); Monocytes # (auto) 0.3 10 ^3/uL (0-1.3); Monocytes % (auto) 2.6 % (0.0-12.0); Neutrophils # (auto) 9.2 10 ^3/uL (1.6-8.6); Neutrophils % (auto) 92.2 % (37.0-80.0); Red Blood Cells 3.12 10^6/uL (4.0-5.20); Red Cell Distribution Width 15.3 % (11.8-14.3); White Blood Cell 9.9 10^3/uL (4.4-10.8)
[2022-12-10 10:38] LABS: Chloride 95 mmol/L (98-107); Potassium 4.2 mmol/L (3.5-5.1); Sodium 137 mmol/L (136-145)
[2022-12-10 10:39] LABS: Anion Gap 5.5 (5-15); Carbon Dioxide 36.5 mmol/L (20-30)
[2022-12-10 10:40] LABS: Calcium 8.4 mg/dL (8.5-10.1)
[2022-12-10 10:44] LABS: Glucose 292 mg/dL (74-106)
[2022-12-10 10:45] LABS: BUN/Creatinine Ratio 42.1 (10.0-20.0)
[2022-12-10 10:49] LABS: Blood Urea Nitrogen 40 mg/dL (9-23)
[2022-12-10] MEDS: BENAZEPRIL HCL 10 MG TAB PO SCH (11:12)
[2022-12-10] MEDS: ACETAMINOPHEN 325 MG TAB PO PRN ×2 (11:13→22:11)
[2022-12-10] MEDS: ASPirin 81 mg TAB PO SCH (11:13)
[2022-12-10] MEDS: PANTOPRAZOLE 40 MG TAB PO SCH (11:13)
[2022-12-10] MEDS: ENOXAPARIN SOD 40 MG/0.4 ML SYRINGE SC SCH (11:13)
[2022-12-10] MEDS: AMBRISENTAN 10 MG PO SCH (11:14)
[2022-12-10] MEDS ORDERED: AZIT-81 PO (11:42)
[2022-12-10] MEDS ORDERED: PRED20TA2 PO (11:42)
[2022-12-11 05:00] VITALS: BP 149/58; PULSE 71; RESP 19; TEMP 98.3; O2SAT 98
[2022-12-11] MEDS: FUROSEMIDE 20 MG/2 ML VIAL IV SCH (05:54)
[2022-12-11] MEDS: methylPREDNISolone SOD SUCC 40 MG/ML VL IV SCH ×2 (05:54→15:11)
[2022-12-11] MEDS: ACCU-CHEK COMFORT CURVE STRIP VI SCH ×2 (05:55→12:16)
[2022-12-11] MEDS: InsuLIN REG 1unit/0.01ml Soln (100units/ml) SC SCH ×2 (05:59→12:34)
[2022-12-11 06:03] LABS: Chloride 95 mmol/L (98-107); Potassium 4.1 mmol/L (3.5-5.1); Sodium 138 mmol/L (136-145)
[2022-12-11 06:05] LABS: Calcium 8.5 mg/dL (8.7-10.4)
[2022-12-11 06:09] LABS: BUN/Creatinine Ratio 40.8 (10.0-20.0); Blood Urea Nitrogen 40 mg/dL (9-23); Glucose 172 mg/dL (74-106)
[2022-12-11 06:10] LABS: Basophils # (auto) 0 10 ^3/uL (0-0.2); Eosinophils # (auto) 0 10 ^3/uL (0-0.8); Hematocrit 27.9 % (36.0-46.0); Hemoglobin 8.9 g/dL (12.2-16.2); Lymphocytes # (auto) 0.7 10 ^3/uL (0.4-5.4); Lymphocytes % (auto) 7.8 % (10.0-50.0); Mean Corpuscular Hemoglobin 27.6 pg (28.0-32.0); Mean Corpuscular Hgb Conc. 31.9 g/dL (32.0-36.0); Mean Corpuscular Volume 86.6 fL (80.0-100.0); Monocytes # (auto) 0.4 10 ^3/uL (0-1.3); Neutrophils # (auto) 7.9 10 ^3/uL (1.6-8.6); Neutrophils % (auto) 88.2 % (37.0-80.0); Nucleated Red Blood Cells % 0.1 %; Red Blood Cells 3.23 10^6/uL (4.0-5.20); Red Cell Distribution Width 15.1 % (11.8-14.3)
[2022-12-11 06:38] VITALS: O2SAT 99
[2022-12-11 08:00] VITALS: PULSE 62; PULSE 71; RESP 18; O2SAT 98
[2022-12-11 08:30] VITALS: BP 121/69; PULSE 69; RESP 18; TEMP 97.8; O2SAT 96
[2022-12-11 10:00] VITALS: O2SAT 98
[2022-12-11] MEDS: cefTRIAXone 1GM/50ML D5W 50 ML IV SCH (10:06)
[2022-12-11] MEDS: ASPirin 81 mg TAB PO SCH (10:07)
[2022-12-11] MEDS: PANTOPRAZOLE 40 MG TAB PO SCH (10:07)
[2022-12-11] MEDS: BENAZEPRIL HCL 10 MG TAB PO SCH (10:07)
[2022-12-11] MEDS: amLODIPine BESYLATE 5 MG TAB PO SCH (10:08)
[2022-12-11] MEDS: ENOXAPARIN SOD 40 MG/0.4 ML SYRINGE SC SCH (10:08)
[2022-12-11] MEDS: Escitalopram Oxalate (Lexapro) 10 MG TABLET PO SCH (10:09)
[2022-12-11] MEDS: AMBRISENTAN 10 MG PO SCH (10:09)
[2022-12-11] MEDS: AZITHROMYCIN 500MG/ 250ML 250 ML IV SCH (12:16)
[2022-12-11 13:33] VITALS: BP 159/67; PULSE 88; RESP 18; TEMP 98.6; O2SAT 91
== END 2022-12-11 16:20 | disposition home or self-care (01) | DRG 137 ==
LOC: ER 11:01 → TELE 14:34 → TELE-WESTW 23:22
PROVIDERS: ADMIT Internal Medicine; ATTEND Internal Medicine
DX: J15.6 Pneumonia due to other Gram-negative bacteria (principal); J96.20 Acute and chronic respiratory failure, unspecified whether with hypoxia or hypercapnia; I50.33 Acute on chronic diastolic (congestive) heart failure; N17.9 Acute kidney failure, unspecified; I27.20 Pulmonary hypertension, unspecified; E87.4 Mixed disorder of acid-base balance; D68.9 Coagulation defect, unspecified; D63.8 Anemia in other chronic diseases classified elsewhere; J44.1 Chronic obstructive pulmonary disease with (acute) exacerbation; I11.0 Hypertensive heart disease with heart failure; E11.9 Type 2 diabetes mellitus without complications; Z20.822 Contact with and (suspected) exposure to COVID-19; M17.0 Bilateral primary osteoarthritis of knee; J44.0 Chronic obstructive pulmonary disease with (acute) lower respiratory infection; E66.01 Morbid (severe) obesity due to excess calories; E78.5 Hyperlipidemia, unspecified; Z88.8 Allergy status to other drugs, medicaments and biological substances; Z88.6 Allergy status to analgesic agent; Z79.899 Other long term (current) drug therapy; Z99.81 Dependence on supplemental oxygen; Z68.33 Body mass index [BMI] 33.0-33.9, adult; Z90.49 Acquired absence of other specified parts of digestive tract; Z74.01 Bed confinement status
CPT/HCPCS: 36415; 36600; 71045; 80048; 80053; 80061; 81001; 82805; 82962; 83036; 83540; 83550; 83880; 84443; 84484; 85025; 85379; 85610; 87426; 87804; 87807; 93005; 93970; 94640; 96365; 96375; 97110; 97116; 97163; 97530; G0378; J0696; J1815

== ENCOUNTER 2023-01-19 13:56 | Emergency (ER) | payer MEDICAID ==
[~2023-01-19] VITALS: Ht 154.9 cm; Wt 80.9 kg
[~2023-01-19 13:56] MED LIST changes: +AZIT-81 PO
[2023-01-19] MEDS ORDERED: ACETAMINOPHEN 500 MG TAB PO ONE (14:30)
[2023-01-19 15:24] LABS: Basophils # (auto) 0 10 ^3/uL (0-0.2); Basophils % (auto) 0.5 % (0.0-2.0); Eosinophils # (auto) 0.1 10 ^3/uL (0-0.8); Eosinophils % (auto) 1.2 % (0.0-7.0); Hematocrit 28.2 % (36.0-46.0); Hemoglobin 9.1 g/dL (12.2-16.2); Lymphocytes # (auto) 1.6 10 ^3/uL (0.4-5.4); Lymphocytes % (auto) 28.1 % (10.0-50.0); Mean Corpuscular Hemoglobin 28.1 pg (28.0-32.0); Mean Corpuscular Hgb Conc. 32.1 g/dL (32.0-36.0); Mean Corpuscular Volume 87.5 fL (80.0-100.0); Monocytes # (auto) 0.5 10 ^3/uL (0-1.3); Monocytes % (auto) 8.8 % (0.0-12.0); Neutrophils # (auto) 3.4 10 ^3/uL (1.6-8.6); Neutrophils % (auto) 61.4 % (37.0-80.0); Nucleated Red Blood Cells % 0.2 %; Red Blood Cells 3.22 10^6/uL (4.0-5.20); Red Cell Distribution Width 15.1 % (11.8-14.3); White Blood Cell 5.6 10^3/uL (4.4-10.8)
[2023-01-19 15:47] LABS: Albumin 4.1 g/dL (3.2-4.8); Alkaline Phosphatase 34 U/L (46-116); Anion Gap 3 (5-15); Aspartate Aminotransferase 12 U/L (13-40); BUN/Creatinine Ratio 15.3 (10.0-20.0); Blood Urea Nitrogen 13 mg/dL (9-23); Calcium 8.8 mg/dL (8.7-10.4); Carbon Dioxide 32 mmol/L (20-30); Chloride 102 mmol/L (98-107); Glucose 89 mg/dL (74-106); Lipase 40 U/L (12-53); Magnesium 1.6 mg/dL (1.6-2.6); Potassium 4.3 mmol/L (3.5-5.1); Sodium 137 mmol/L (136-145)
[2023-01-19 15:48] LABS: Bilirubin, Total 0.4 mg/dL (0.2-1.0); Total Protein 6.1 g/dL (5.7-8.2)
[2023-01-19 15:50] LABS: Alanine Aminotransferase < 9 U/L (7-40)
[2023-01-19 16:18] LABS: Urine Bacteria NONE SEEN /hpf (None Seen); Urine Blood Negative /uL (Negative); Urine Clarity Clear (Clear); Urine Color Colorless (Yellow); Urine Protein, UAD Negative (Negative); Urine Specific Gravity 1.005 (1.001-1.035); Urine Urobilinogen Normal (Negative); Urine WBC 2 /hpf (0 - 5)
[2023-01-19] MEDS ORDERED: ACET300T58 PO (16:47)
[2023-01-19 21:40] VITALS: BP 144/51; PULSE 91; RESP 20; TEMP 98; O2SAT 95
== END 2023-01-19 21:45 | disposition home or self-care (01) ==
LOC: ER 13:56
DX: M47.812 Spondylosis without myelopathy or radiculopathy, cervical region (principal); M47.816 Spondylosis without myelopathy or radiculopathy, lumbar region; G89.29 Other chronic pain; I11.0 Hypertensive heart disease with heart failure; I50.9 Heart failure, unspecified; J44.9 Chronic obstructive pulmonary disease, unspecified; E78.5 Hyperlipidemia, unspecified; Z90.49 Acquired absence of other specified parts of digestive tract; Z79.2 Long term (current) use of antibiotics; Z79.899 Other long term (current) drug therapy; Z88.8 Allergy status to other drugs, medicaments and biological substances
CPT/HCPCS: 36415; 71250; 72040; 72100; 80053; 81001; 83690; 83735; 83880; 84484; 85025; 93005

== ENCOUNTER 2023-02-20 06:59 | Inpatient (IN) | payer MEDICAID ==
[~2023-02-20] VITALS: Ht 152.4 cm; Wt 75.5 kg
[2023-02-20] VITALS (12 sets, daily range): BP systolic 132; BP diastolic 54; PULSE 70–91; RESP 16–22; TEMP 98.8; O2SAT 92–100
[~2023-02-20 06:59] MED LIST changes: +ACET300T58 PO
[2023-02-20 07:55] LABS: Urine Bacteria NONE SEEN /hpf (None Seen); Urine Blood 1+ /uL (Negative); Urine Clarity Clear (Clear); Urine Color Colorless (Yellow); Urine Protein, UAD TRACE (Negative); Urine Specific Gravity 1.009 (1.001-1.035); Urine Urobilinogen Normal (Negative); Urine WBC 9 /hpf (0 - 5); Urine pH 6.5 (5.0-8.0)
[2023-02-20] MEDS ORDERED: SODIUM CHLORIDE 0.9% 1,000 ML IV ONE (08:45)
[2023-02-20] MEDS ORDERED: cefTRIAXone 1GM/50ML D5W 50 ML IV ONE (08:45)
[2023-02-20 09:25] LABS: Basophils # (auto) 0 10 ^3/uL (0-0.2); Basophils % (auto) 0.6 % (0.0-2.0); Eosinophils # (auto) 0.1 10 ^3/uL (0-0.8); Eosinophils % (auto) 2.4 % (0.0-7.0); Hematocrit 28.1 % (36.0-46.0); Hemoglobin 8.7 g/dL (12.2-16.2); Lymphocytes # (auto) 1.4 10 ^3/uL (0.4-5.4); Lymphocytes % (auto) 24.5 % (10.0-50.0); Mean Corpuscular Hemoglobin 26.7 pg (28.0-32.0); Mean Corpuscular Hgb Conc. 31.1 g/dL (32.0-36.0); Monocytes # (auto) 0.5 10 ^3/uL (0-1.3); Monocytes % (auto) 8.8 % (0.0-12.0); Neutrophils # (auto) 3.8 10 ^3/uL (1.6-8.6); Neutrophils % (auto) 63.7 % (37.0-80.0); Red Blood Cells 3.26 10^6/uL (4.0-5.20); White Blood Cell 5.9 10^3/uL (4.4-10.8)
[2023-02-20 09:59] LABS: Albumin 4.4 g/dL (3.2-4.8); Alkaline Phosphatase 50 U/L (46-116); Aspartate Aminotransferase 19 U/L (13-40); BUN/Creatinine Ratio 14.7 (10.0-20.0); Bilirubin, Total 0.3 mg/dL (0.2-1.0); Blood Urea Nitrogen 10 mg/dL (9-23); Calcium 8.9 mg/dL (8.5-10.1); Glucose 90 mg/dL (74-106); Total Protein 6.2 g/dL (5.7-8.2)
[2023-02-20 10:31] LABS: Alanine Aminotransferase < 9 U/L (7-40)
[2023-02-20 10:58] LABS: Chloride 99 mmol/L (98-107); Potassium 4.8 mmol/L (3.5-5.1); Sodium 137 mmol/L (136-145)
[2023-02-20 11:06] LABS: Anion Gap 3 (5-15); Carbon Dioxide 35 mmol/L (20-30)
[2023-02-20] MEDS ORDERED: FUROSEMIDE 40 MG/4 ML VIAL IV ONE (11:45)
[2023-02-20] MEDS ORDERED: ACETAMINOPHEN 325 MG TAB PO PRN (12:15)
[2023-02-20] MEDS ORDERED: DEXTROSE (50%) 50ML SYRG IV PRN (12:15)
[2023-02-20] MEDS ORDERED: NITROGLYCERIN 0.4 MG SL TAB SL PRN (12:15)
[2023-02-20] MEDS ORDERED: ALBUTEROL MEDNEB 2.5 mg/3ml NEB NEB PRN (12:15)
[2023-02-20] MEDS ORDERED: MORPHINE SULFATE INJ 2 MG/ml SYRG IV PRN (12:15)
[2023-02-20] MEDS ORDERED: AZITHROMYCIN 500MG/ 250ML 250 ML IV ONE (12:30)
[2023-02-20] MEDS: ALBUTEROL MEDNEB 2.5 mg/3ml NEB NEB SCH ×3 (13:25→22:03)
[2023-02-20] MEDS: IPRATROPIUM BROM 0.5 MG/2.5ML INH SOL NEB SCH ×3 (13:25→22:03)
[2023-02-20 14:13] LABS: Triglycerides 113 mg/dL (< 150)
[2023-02-20 14:14] LABS: LDL Cholesterol 100 mg/dL (< 100)
[2023-02-20 14:15] LABS: Cholesterol 177 mg/dL (< 200); HDL Cholesterol 58 mg/dL (40-59)
[2023-02-20] MEDS: InsuLIN REG 1unit/0.01ml Soln (100units/ml) SC SCH ×2 (20:23→22:00)
[2023-02-20] MEDS: ACCU-CHEK COMFORT CURVE STRIP VI SCH ×2 (20:24→22:45)
[2023-02-20 21:58] LABS: COVID19 ANTIGEN SOFIA FIA NEGATIVE (NEGATIVE); Rapid Influenza A Negative (Negative); Rapid Influenza B Negative (Negative)
[2023-02-21] VITALS (19 sets, daily range): BP systolic 112–136; BP diastolic 46–62; PULSE 65–87; RESP 16–20; TEMP 97.8–99; O2SAT 94–99
[2023-02-21] MEDS ORDERED: FLUT500M2 (01:57)
[2023-02-21] MEDS ORDERED: ALBU108A5 INH (01:57)
[2023-02-21] MEDS ORDERED: LOSA50TA46 PO (01:57)
[2023-02-21] MEDS ORDERED: AMLO1TAB21 PO (01:57)
[2023-02-21] MEDS: ALBUTEROL MEDNEB 2.5 mg/3ml NEB NEB SCH ×6 (03:00→22:11)
[2023-02-21] MEDS: IPRATROPIUM BROM 0.5 MG/2.5ML INH SOL NEB SCH ×6 (03:00→22:11)
[2023-02-21 05:43] LABS: Basophils # (auto) 0 10 ^3/uL (0-0.2); Eosinophils # (auto) 0.1 10 ^3/uL (0-0.8); Mean Corpuscular Hemoglobin 26.9 pg (28.0-32.0)
[2023-02-21 05:45] LABS: Basophils % (auto) 0.5 % (0.0-2.0); Eosinophils % (auto) 2.2 % (0.0-7.0); Hematocrit 25.4 % (36.0-46.0); Lymphocytes # (auto) 1.9 10 ^3/uL (0.4-5.4); Lymphocytes % (auto) 33.6 % (10.0-50.0); Mean Corpuscular Hgb Conc. 31.5 g/dL (32.0-36.0); Mean Corpuscular Volume 85.5 fL (80.0-100.0); Monocytes # (auto) 0.6 10 ^3/uL (0-1.3); Monocytes % (auto) 10.5 % (0.0-12.0); Neutrophils % (auto) 53.2 % (37.0-80.0); Nucleated Red Blood Cells % 0.1 %; Red Blood Cells 2.98 10^6/uL (4.0-5.20); Red Cell Distribution Width 14.8 % (11.8-14.3); White Blood Cell 5.6 10^3/uL (4.4-10.8)
[2023-02-21 06:02] LABS: Albumin 3.9 g/dL (3.2-4.8); Alkaline Phosphatase 30 U/L (46-116); Anion Gap 2 (5-15); Aspartate Aminotransferase 14 U/L (13-40); BUN/Creatinine Ratio 16.3 (10.0-20.0); Bilirubin, Total 0.4 mg/dL (0.2-1.0); Blood Urea Nitrogen 13 mg/dL (9-23); Calcium 8.6 mg/dL (8.5-10.1); Carbon Dioxide 35 mmol/L (20-30); Chloride 100 mmol/L (98-107); Glucose 94 mg/dL (74-106); Potassium 4.3 mmol/L (3.5-5.1); Sodium 137 mmol/L (136-145); Total Protein 5.8 g/dL (5.7-8.2)
[2023-02-21 06:29] LABS: Alanine Aminotransferase < 9 U/L (7-40)
[2023-02-21] MEDS: ACCU-CHEK COMFORT CURVE STRIP VI SCH ×4 (06:32→21:49)
[2023-02-21] MEDS: InsuLIN REG 1unit/0.01ml Soln (100units/ml) SC SCH ×4 (06:32→21:49)
[2023-02-21] MEDS: cefTRIAXone 1GM/50ML D5W 50 ML IV SCH (10:53)
[2023-02-21] MEDS: FUROSEMIDE 20 MG/2 ML VIAL IV SCH (10:53)
[2023-02-21] MEDS: CITALOPRAM HYDROBR 20 MG TAB PO SCH (10:54)
[2023-02-21] MEDS: BENAZEPRIL HCL 10 MG TAB PO SCH (10:54)
[2023-02-21] MEDS: amLODIPine BESYLATE 5 MG TAB PO SCH (10:55)
[2023-02-21] MEDS: PANTOPRAZOLE 40 MG TAB PO SCH (10:55)
[2023-02-21] MEDS: ENOXAPARIN SOD 40 MG/0.4 ML SYRINGE SC SCH (10:56)
[2023-02-21] MEDS: AZITHROMYCIN 500MG/ 250ML 250 ML IV SCH (12:11)
[2023-02-22] VITALS (18 sets, daily range): BP systolic 105–131; BP diastolic 46–57; PULSE 70–85; RESP 16–20; TEMP 97.6–98.6; O2SAT 93–100
[2023-02-22] MEDS: IPRATROPIUM BROM 0.5 MG/2.5ML INH SOL NEB SCH ×6 (02:15→23:49)
[2023-02-22] MEDS: ALBUTEROL MEDNEB 2.5 mg/3ml NEB NEB SCH ×6 (02:16→23:49)
[2023-02-22] MEDS: ACCU-CHEK COMFORT CURVE STRIP VI SCH ×4 (06:49→22:00)
[2023-02-22] MEDS: InsuLIN REG 1unit/0.01ml Soln (100units/ml) SC SCH ×4 (06:49→22:00)
[2023-02-22] MEDS: cefTRIAXone 1GM/50ML D5W 50 ML IV SCH (09:50)
[2023-02-22] MEDS: FUROSEMIDE 20 MG/2 ML VIAL IV SCH (09:52)
[2023-02-22] MEDS: CITALOPRAM HYDROBR 20 MG TAB PO SCH (09:53)
[2023-02-22] MEDS: amLODIPine BESYLATE 5 MG TAB PO SCH (09:54)
[2023-02-22] MEDS: BENAZEPRIL HCL 10 MG TAB PO SCH (09:54)
[2023-02-22] MEDS: ENOXAPARIN SOD 40 MG/0.4 ML SYRINGE SC SCH (09:55)
[2023-02-22] MEDS: PANTOPRAZOLE 40 MG TAB PO SCH (09:55)
[2023-02-22] MEDS: AZITHROMYCIN 500MG/ 250ML 250 ML IV SCH ×2 (10:00→11:39)
[2023-02-23] VITALS (11 sets, daily range): BP systolic 121–135; BP diastolic 51–75; PULSE 67–88; RESP 18–22; TEMP 97.9–98.2; O2SAT 91–100
[2023-02-23] MEDS: IPRATROPIUM BROM 0.5 MG/2.5ML INH SOL NEB SCH ×3 (02:22→10:40)
[2023-02-23] MEDS: ALBUTEROL MEDNEB 2.5 mg/3ml NEB NEB SCH ×3 (02:22→10:40)
[2023-02-23 03:19] LABS: Urine Bacteria NONE SEEN /hpf (None Seen); Urine Blood TRACE /uL (Negative); Urine Clarity Clear (Clear); Urine Color Colorless (Yellow); Urine Protein, UAD Negative (Negative); Urine Specific Gravity 1.008 (1.001-1.035); Urine Urobilinogen Normal (Negative); Urine WBC 1 /hpf (0 - 5); Urine pH 6.5 (5.0-8.0)
[2023-02-23] MEDS: ACCU-CHEK COMFORT CURVE STRIP VI SCH (07:00)
[2023-02-23] MEDS: InsuLIN REG 1unit/0.01ml Soln (100units/ml) SC SCH (07:00)
[2023-02-23] MEDS ORDERED: LEVO500T91 PO (08:59)
[2023-02-23] MEDS: cefTRIAXone 1GM/50ML D5W 50 ML IV SCH (09:20)
[2023-02-23 09:21] LABS: Hepatitis B Surface Antigen Negative (Negative)
[2023-02-23] MEDS: PANTOPRAZOLE 40 MG TAB PO SCH (09:21)
[2023-02-23] MEDS: CITALOPRAM HYDROBR 20 MG TAB PO SCH (09:22)
[2023-02-23] MEDS: BENAZEPRIL HCL 10 MG TAB PO SCH (09:22)
[2023-02-23] MEDS: ENOXAPARIN SOD 40 MG/0.4 ML SYRINGE SC SCH (09:22)
[2023-02-23] MEDS: amLODIPine BESYLATE 5 MG TAB PO SCH (09:23)
[2023-02-23] MEDS: FUROSEMIDE 20 MG/2 ML VIAL IV SCH (09:23)
[2023-02-23 09:42] LABS: Hepatitis C Antibody Negative (Negative)
[2023-02-23] MEDS: AZITHROMYCIN 500MG/ 250ML 250 ML IV SCH (10:00)
== END 2023-02-23 11:40 | disposition home or self-care (01) | DRG 137 ==
LOC: ER 06:59 → TELE 12:22 → TELE-EAST 21:33
PROVIDERS: ADMIT Nurse Practitioner Family; ATTEND Family Medicine
DX: J15.69 Pneumonia due to other Gram-negative bacteria (principal); J96.22 Acute and chronic respiratory failure with hypercapnia; I50.43 Acute on chronic combined systolic (congestive) and diastolic (congestive) heart failure; N17.9 Acute kidney failure, unspecified; I27.20 Pulmonary hypertension, unspecified; E87.4 Mixed disorder of acid-base balance; D63.8 Anemia in other chronic diseases classified elsewhere; I11.0 Hypertensive heart disease with heart failure; J15.9 Unspecified bacterial pneumonia; J44.0 Chronic obstructive pulmonary disease with (acute) lower respiratory infection; Z20.822 Contact with and (suspected) exposure to COVID-19; J44.1 Chronic obstructive pulmonary disease with (acute) exacerbation; Z99.81 Dependence on supplemental oxygen; N30.00 Acute cystitis without hematuria; E11.9 Type 2 diabetes mellitus without complications; E66.01 Morbid (severe) obesity due to excess calories; E78.5 Hyperlipidemia, unspecified; M17.0 Bilateral primary osteoarthritis of knee; Z88.8 Allergy status to other drugs, medicaments and biological substances; Z68.32 Body mass index [BMI] 32.0-32.9, adult; Z90.49 Acquired absence of other specified parts of digestive tract
CPT/HCPCS: 36415; 71045; 80053; 80061; 81001; 82962; 83036; 83605; 83880; 84443; 84484; 85025; 86803; 87040; 87086; 87340; 87426; 87804; 93005; 94640; 96365; 96367; G0378; J0696; J1815

== ENCOUNTER 2023-04-10 08:55 | Inpatient (IN) | payer MEDICAID ==
[~2023-04-10] VITALS: Ht 152.4 cm; Wt 81.2 kg
[2023-04-10] VITALS (7 sets, daily range): BP systolic 142–145; BP diastolic 64–74; PULSE 87–100; RESP 15–20; TEMP 97.6; O2SAT 93–100
[~2023-04-10 08:55] MED LIST changes: +ALBU108A5 INH; +AMLO1TAB21 PO; -AMOX500T86 PO; -AZIT-81 PO; +FLUT500M2; +LEVO500T91 PO; +LOSA50TA46 PO
[2023-04-10] MEDS ORDERED: FUROSEMIDE 40 MG/4 ML VIAL IV ONE (09:30)
[2023-04-10 10:01] LABS: Basophils # (auto) 0 10 ^3/uL (0-0.2); Eosinophils # (auto) 0.1 10 ^3/uL (0-0.8); Eosinophils % (auto) 1.4 % (0.0-7.0); Hemoglobin 7.9 g/dL (12.2-16.2); Lymphocytes % (auto) 22.1 % (10.0-50.0); Monocytes # (auto) 0.4 10 ^3/uL (0-1.3); Neutrophils # (auto) 3.1 10 ^3/uL (1.6-8.6)
[2023-04-10 10:03] LABS: Basophils % (auto) 0.3 % (0.0-2.0); Hematocrit 25.6 % (36.0-46.0); Mean Corpuscular Hemoglobin 25.7 pg (28.0-32.0); Mean Corpuscular Hgb Conc. 30.9 g/dL (32.0-36.0); Mean Corpuscular Volume 83.4 fL (80.0-100.0); Monocytes % (auto) 9.2 % (0.0-12.0); Nucleated Red Blood Cells % 0.1 %; Red Blood Cells 3.07 10^6/uL (4.0-5.20); Red Cell Distribution Width 16.3 % (11.8-14.3); White Blood Cell 4.6 10^3/uL (4.4-10.8)
[2023-04-10 10:16] LABS: INR 0.96 (0.9-1.15); Partial Thromboplastin Time 28.5 SEC (24.5-34.5); Prothrombin Time 10.1 sec (9.3-11.8)
[2023-04-10 10:30] LABS: Alkaline Phosphatase 36 U/L (46-116); Anion Gap 3 (5-15); Aspartate Aminotransferase 18 U/L (13-40); BUN/Creatinine Ratio 20.9 (10.0-20.0); Blood Urea Nitrogen 19 mg/dL (9-23); Calcium 9.2 mg/dL (8.5-10.1); Carbon Dioxide 37 mmol/L (20-30); Chloride 96 mmol/L (98-107); Glucose 106 mg/dL (74-106); Sodium 136 mmol/L (136-145)
[2023-04-10 10:31] LABS: Albumin 4.2 g/dL (3.2-4.8); Bilirubin, Total 0.3 mg/dL (0.2-1.0); Total Protein 6.2 g/dL (5.7-8.2)
[2023-04-10 10:33] LABS: Alanine Aminotransferase < 9 U/L (7-40)
[2023-04-10] MEDS ORDERED: MORPHINE SULFATE INJ 2 MG/ml SYRG IV PRN (11:30)
[2023-04-10] MEDS ORDERED: ONDANSETRON HCL 4 MG/2 ML VIAL IV PRN (11:30)
[2023-04-10] MEDS ORDERED: DOCUSATE SOD 100 MG CAP PO PRN (11:30)
[2023-04-10] MEDS: IPRATROPIUM BROM 0.5 MG/2.5ML INH SOL NEB SCH ×3 (15:05→22:43)
[2023-04-10] MEDS: ALBUTEROL SULF 2.5 MG/0.5ML(0.5%) NEB SOLN NEB SCH ×3 (15:05→22:44)
[2023-04-10] MEDS: predniSONE 20 MG TAB PO SCH (16:05)
[2023-04-10] MEDS ORDERED: RIOC1TAB14 PO ×2 (17:37)
[2023-04-10] MEDS: RIOCIGUAT BASE PO SCH (22:36)
[2023-04-11] VITALS (17 sets, daily range): BP systolic 106–145; BP diastolic 44–75; PULSE 72–99; RESP 15–22; TEMP 97.7–99.1; O2SAT 91–100
[2023-04-11] MEDS: IPRATROPIUM BROM 0.5 MG/2.5ML INH SOL NEB SCH ×6 (02:00→22:19)
[2023-04-11] MEDS: ALBUTEROL SULF 2.5 MG/0.5ML(0.5%) NEB SOLN NEB SCH ×6 (02:00→22:19)
[2023-04-11 06:48] LABS: Alkaline Phosphatase 32 U/L (46-116); Anion Gap 3 (5-15); Aspartate Aminotransferase 18 U/L (13-40); BUN/Creatinine Ratio 17.5 (10.0-20.0); Bilirubin, Total 0.4 mg/dL (0.2-1.0); Blood Urea Nitrogen 14 mg/dL (9-23); Calcium 9.4 mg/dL (8.5-10.1); Carbon Dioxide 39 mmol/L (20-30); Chloride 95 mmol/L (98-107); Glucose 120 mg/dL (74-106); Potassium 4.9 mmol/L (3.5-5.1); Sodium 137 mmol/L (136-145); Total Protein 6.2 g/dL (5.7-8.2)
[2023-04-11] MEDS: RIOCIGUAT BASE PO SCH ×3 (06:50→21:17)
[2023-04-11 06:54] LABS: Alanine Aminotransferase < 9 U/L (7-40)
[2023-04-11 06:58] LABS: Basophils # (auto) 0 10 ^3/uL (0-0.2); Eosinophils # (auto) 0 10 ^3/uL (0-0.8); Lymphocytes # (auto) 0.9 10 ^3/uL (0.4-5.4); Mean Corpuscular Hgb Conc. 31.5 g/dL (32.0-36.0); Monocytes # (auto) 0.2 10 ^3/uL (0-1.3); Neutrophils # (auto) 3.9 10 ^3/uL (1.6-8.6); White Blood Cell 4.9 10^3/uL (4.4-10.8)
[2023-04-11 07:00] LABS: Basophils % (auto) 0.2 % (0.0-2.0); Hematocrit 25.5 % (36.0-46.0); Lymphocytes % (auto) 18.2 % (10.0-50.0); Mean Corpuscular Hemoglobin 25.9 pg (28.0-32.0); Mean Corpuscular Volume 82.4 fL (80.0-100.0); Monocytes % (auto) 3.1 % (0.0-12.0); Neutrophils % (auto) 78.5 % (37.0-80.0); Red Cell Distribution Width 15.9 % (11.8-14.3)
[2023-04-11] MEDS ORDERED: LISINOPRIL 20 MG TAB PO SCH (10:00)
[2023-04-11] MEDS: FUROSEMIDE 20 MG/2 ML VIAL IV SCH (10:07)
[2023-04-11] MEDS: CITALOPRAM HYDROBR 20 MG TAB PO SCH (10:08)
[2023-04-11] MEDS: predniSONE 20 MG TAB PO SCH (10:08)
[2023-04-11] MEDS: PANTOPRAZOLE 40 MG TAB PO SCH (10:09)
[2023-04-11] MEDS: LOSARTAN POTASSIUM 50 MG TAB PO SCH (10:10)
[2023-04-11] MEDS: amLODIPine BESYLATE 5 MG TAB PO SCH (10:10)
[2023-04-11] MEDS ORDERED: HYDROcodone-ACET 5/325MG TAB PO ONE (23:15)
[2023-04-11] MEDS ORDERED: LORazepam 0.5 MG TAB PO ONE (23:15)
[2023-04-12] VITALS (20 sets, daily range): BP systolic 104–139; BP diastolic 34–59; PULSE 62–108; RESP 16–20; TEMP 97.6–99.1; O2SAT 91–100
[2023-04-12] MEDS: IPRATROPIUM BROM 0.5 MG/2.5ML INH SOL NEB SCH ×6 (01:25→22:28)
[2023-04-12] MEDS: ALBUTEROL SULF 2.5 MG/0.5ML(0.5%) NEB SOLN NEB SCH ×6 (01:25→22:28)
[2023-04-12] MEDS: RIOCIGUAT BASE PO SCH ×3 (05:58→21:04)
[2023-04-12] MEDS: predniSONE 20 MG TAB PO SCH (10:07)
[2023-04-12] MEDS: PANTOPRAZOLE 40 MG TAB PO SCH (10:08)
[2023-04-12] MEDS: LOSARTAN POTASSIUM 50 MG TAB PO SCH (10:08)
[2023-04-12] MEDS: amLODIPine BESYLATE 5 MG TAB PO SCH (10:08)
[2023-04-12] MEDS: CITALOPRAM HYDROBR 20 MG TAB PO SCH (10:08)
[2023-04-12] MEDS: FUROSEMIDE 20 MG/2 ML VIAL IV SCH (10:11)
[2023-04-13] VITALS (11 sets, daily range): BP systolic 110–120; BP diastolic 50–62; PULSE 78–96; RESP 17–20; TEMP 98.8–99.1; O2SAT 94–99
[2023-04-13] MEDS: ALBUTEROL SULF 2.5 MG/0.5ML(0.5%) NEB SOLN NEB SCH ×4 (02:26→14:42)
[2023-04-13] MEDS: IPRATROPIUM BROM 0.5 MG/2.5ML INH SOL NEB SCH ×4 (02:26→14:42)
[2023-04-13] MEDS: RIOCIGUAT BASE PO SCH ×2 (05:25→14:00)
[2023-04-13] MEDS: LOSARTAN POTASSIUM 50 MG TAB PO SCH (08:55)
[2023-04-13] MEDS: amLODIPine BESYLATE 5 MG TAB PO SCH (08:55)
[2023-04-13] MEDS: predniSONE 20 MG TAB PO SCH (08:56)
[2023-04-13] MEDS: PANTOPRAZOLE 40 MG TAB PO SCH (08:56)
[2023-04-13] MEDS: CITALOPRAM HYDROBR 20 MG TAB PO SCH (08:56)
[2023-04-13] MEDS: FUROSEMIDE 20 MG/2 ML VIAL IV SCH (10:00)
[2023-04-13] MEDS ORDERED: PRED20TA2 PO (10:26)
[2023-04-13] MEDS ORDERED: ONDANSETRON HCL 4 MG/2 ML VIAL IM ONE (13:00)
== END 2023-04-13 14:30 | disposition home or self-care (01) | DRG 140 ==
LOC: ER 08:55 → TELE 11:38 → TELE-CENTR 23:20
PROVIDERS: ADMIT Nurse Practitioner Family; ATTEND Family Medicine
DX: J44.1 Chronic obstructive pulmonary disease with (acute) exacerbation (principal); J96.21 Acute and chronic respiratory failure with hypoxia; I50.43 Acute on chronic combined systolic (congestive) and diastolic (congestive) heart failure; I27.20 Pulmonary hypertension, unspecified; D63.8 Anemia in other chronic diseases classified elsewhere; J45.901 Unspecified asthma with (acute) exacerbation; I11.0 Hypertensive heart disease with heart failure; E78.5 Hyperlipidemia, unspecified; E11.9 Type 2 diabetes mellitus without complications; E66.01 Morbid (severe) obesity due to excess calories; Z88.5 Allergy status to narcotic agent; Z99.81 Dependence on supplemental oxygen; Z68.34 Body mass index [BMI] 34.0-34.9, adult
CPT/HCPCS: 36415; 71045; 80053; 83880; 84484; 85025; 85610; 85730; 93005; 94640; 99291; G0378; J2405

== ENCOUNTER 2023-04-23 19:08 | Inpatient (IN) | payer MEDICAID ==
[~2023-04-23] VITALS: Ht 152.4 cm; Wt 84.2 kg
[~2023-04-23 19:08] MED LIST changes: -ACET300T58 PO; -AMLO1TAB21 PO; -LEVO500T91 PO
[2023-04-23 19:59] LABS: Basophils # (auto) 0 10 ^3/uL (0-0.2); Eosinophils # (auto) 0 10 ^3/uL (0-0.8); Monocytes # (auto) 0.2 10 ^3/uL (0-1.3)
[2023-04-23 20:03] LABS: Basophils % (auto) 0.4 % (0.0-2.0); Hematocrit 24.4 % (36.0-46.0); Hemoglobin 7.5 g/dL (12.2-16.2); Lymphocytes # (auto) 0.7 10 ^3/uL (0.4-5.4); Lymphocytes % (auto) 8.4 % (10.0-50.0); Mean Corpuscular Hemoglobin 25.2 pg (28.0-32.0); Mean Corpuscular Hgb Conc. 30.8 g/dL (32.0-36.0); Mean Corpuscular Volume 81.8 fL (80.0-100.0); Monocytes % (auto) 2.5 % (0.0-12.0); Neutrophils # (auto) 7.2 10 ^3/uL (1.6-8.6); Neutrophils % (auto) 88.7 % (37.0-80.0); Nucleated Red Blood Cells % 0.1 %; Red Blood Cells 2.99 10^6/uL (4.0-5.20); Red Cell Distribution Width 16.3 % (11.8-14.3); White Blood Cell 8.1 10^3/uL (4.4-10.8)
[2023-04-23 20:12] LABS: Chloride 89 mmol/L (98-107); Sodium 125 mmol/L (136-145)
[2023-04-23 20:13] LABS: Anion Gap 3 (5-15); Calcium 8.6 mg/dL (8.7-10.4); Carbon Dioxide 33 mmol/L (20-30)
[2023-04-23 20:18] LABS: BUN/Creatinine Ratio 21.2 (10.0-20.0); Blood Urea Nitrogen 24 mg/dL (9-23); Glucose 193 mg/dL (74-106)
[2023-04-23 20:32] LABS: Potassium 5.6 mmol/L (3.5-5.1)
[2023-04-23 20:36] LABS: Platelet Estimate Decreased
[2023-04-23 20:37] LABS: Anisocytosis Slight; Hypochromia Slight
[2023-04-23] MEDS ORDERED: ALBUTEROL SULF 2.5 MG/0.5ML(0.5%) NEB SOLN NEB ONE (20:45)
[2023-04-23] MEDS ORDERED: FUROSEMIDE 20 MG/2 ML VIAL IV ONE ×2 (20:45→21:45)
[2023-04-23] MEDS ORDERED: SODIUM BICARBONATE 8.4% INJ 50ML SYRINGE IV ONE (20:45)
[2023-04-23] MEDS ORDERED: CALCIUM GLUC 1,000mg/50ml-NS 50 ML IV ONE (20:45)
[2023-04-23] MEDS ORDERED: DEXTROSE (50%) 50ML SYRG IV ONE (20:45)
[2023-04-23] MEDS ORDERED: InsuLIN REG 1unit/0.01ml Soln (100units/ml) IV ONE (20:45)
[2023-04-23] MEDS ORDERED: methylPREDNISolone SOD SUCC 125 MG/2 ML VL IV ONE (21:45)
[2023-04-23] MEDS ORDERED: MORPHINE SULFATE INJ 2 MG/ml SYRG IV PRN (22:15)
[2023-04-23] MEDS ORDERED: NITROGLYCERIN 0.4 MG SL TAB SL PRN (22:15)
[2023-04-23] MEDS ORDERED: ONDANSETRON HCL 4 MG/2 ML VIAL IV PRN (22:15)
[2023-04-23 22:19] VITALS: BP 110/39; PULSE 112; RESP 20; TEMP 98.7; O2SAT 96
[2023-04-23] MEDS: SODIUM ZIRCONIUM CYCL 10 GM PAK PO SCH (23:20)
[2023-04-24] MEDS: SODIUM ZIRCONIUM CYCL 10 GM PAK PO SCH (05:15)
[2023-04-24 06:30] LABS: Red Blood Cells 2.83 10^6/uL (4.0-5.20); White Blood Cell 6.8 10^3/uL (4.4-10.8)
[2023-04-24 06:32] LABS: Hematocrit 22.9 % (36.0-46.0); Hemoglobin 7.2 g/dL (12.2-16.2); Mean Corpuscular Hemoglobin 25.5 pg (28.0-32.0); Mean Corpuscular Hgb Conc. 31.4 g/dL (32.0-36.0)
[2023-04-24 06:42] LABS: Alanine Aminotransferase 11 U/L (7-40); Alkaline Phosphatase 29 U/L (46-116); Anion Gap 0 (5-15); BUN/Creatinine Ratio 24.3 (10.0-20.0); Blood Urea Nitrogen 26 mg/dL (9-23); Calcium 8.9 mg/dL (8.5-10.1); Carbon Dioxide 37 mmol/L (20-30); Chloride 90 mmol/L (98-107); Glucose 162 mg/dL (74-106); Potassium 5.4 mmol/L (3.5-5.1); Sodium 127 mmol/L (136-145)
[2023-04-24 06:44] LABS: Albumin 3.8 g/dL (3.2-4.8); Aspartate Aminotransferase 20 U/L (13-40); Bilirubin, Total 0.4 mg/dL (0.2-1.0); Total Protein 5.9 g/dL (5.7-8.2)
[2023-04-24 07:10] LABS: Band Neutrophils % (manual) 0; Basophils % (manual) 0 (0.0-2.0); Blast Cells 0; Eosinophils % (manual) 0 (0-7); Metamyelocytes % 0; Myelocytes % 0; Promyelocytes % 0; Reactive Lymphocytes 0
[2023-04-24 08:00] VITALS: PULSE 97; RESP 18; O2SAT 97
[2023-04-24] MEDS ORDERED: ALBUTEROL SULF 2.5 MG/0.5ML(0.5%) NEB SOLN NEB ONE (08:00)
[2023-04-24] MEDS ORDERED: InsuLIN REG 1unit/0.01ml Soln (100units/ml) IV ONE (08:00)
[2023-04-24] MEDS ORDERED: DEXTROSE (50%) 50ML SYRG IV ONE (08:00)
[2023-04-24] MEDS ORDERED: SODIUM ZIRCONIUM CYCL 10 GM PAK PO ONE (08:00)
[2023-04-24] MEDS ORDERED: SODIUM BICARBONATE 8.4% INJ 50ML SYRINGE IV ONE (08:00)
[2023-04-24] MEDS ORDERED: FUROSEMIDE 20 MG/2 ML VIAL IV ONE (08:00)
[2023-04-24] MEDS ORDERED: CALCIUM GLUC 1,000mg/50ml-NS 50 ML IV ONE (08:00)
[2023-04-24 08:15] VITALS: PULSE 85; RESP 12; O2SAT 96
[2023-04-24] MEDS: ACETAMINOPHEN 325 MG TAB PO PRN ×2 (08:23→23:12)
[2023-04-24 08:24] VITALS: PULSE 86; RESP 14; O2SAT 100
[2023-04-24 09:09] LABS: Urine Epithelial Cast None Seen /hpf (<5)
[2023-04-24 09:21] LABS: Urine Bacteria NONE SEEN /hpf (None Seen); Urine Blood TRACE /uL (Negative); Urine Clarity Clear (Clear); Urine Color Colorless (Yellow); Urine Hyaline Cast FEW /lpf (0 - 2); Urine Protein, UAD Negative (Negative); Urine Specific Gravity 1.008 (1.001-1.035); Urine Urobilinogen Normal (Negative); Urine WBC <1 /hpf (0 - 5)
[2023-04-24] MEDS ORDERED: LOSARTAN POTASSIUM 50 MG TAB PO SCH (10:00)
[2023-04-24] MEDS ORDERED: FUROSEMIDE 40 MG TAB PO SCH (10:00)
[2023-04-24 11:54] LABS: Lymphocytes % (manual) 2 (10.0-50.0); Monocytes % (manual) 1 (0-12)
[2023-04-24 11:55] LABS: Large Platelets FEW; Platelet Estimate Adequa
[2023-04-24 17:01] LABS: Creatinine, Urine 56.53 mg/dL (30.0-125.0)
[2023-04-24] MEDS: cefTRIAXone 1GM/50ML D5W 50 ML IV SCH (17:12)
[2023-04-24] MEDS: AZITHROMYCIN 500MG/ 250ML 250 ML IV SCH (17:12)
[2023-04-24 19:31] VITALS: PULSE 96; RESP 24; O2SAT 96
[2023-04-24 22:00] VITALS: BP 137/87; PULSE 104; PULSE 97; RESP 20; TEMP 98.3; TEMP 98.8; O2SAT 90; O2SAT 97
[2023-04-24 22:18] VITALS: BP 135/45; PULSE 88; RESP 19; TEMP 98.8; O2SAT 98
[2023-04-24] MEDS: ATORVASTATIN 20 MG TAB PO SCH (23:12)
[2023-04-25] VITALS (13 sets, daily range): BP systolic 119–129; BP diastolic 42–51; PULSE 78–91; RESP 17–20; TEMP 98.2–99; O2SAT 92–100
[2023-04-25] MEDS: IPRATROPIUM BROM 0.5 MG/2.5ML INH SOL NEB PRN ×3 (02:22→19:12)
[2023-04-25] MEDS: ALBUTEROL SULF 2.5 MG/0.5ML(0.5%) NEB SOLN NEB PRN ×3 (02:23→19:11)
[2023-04-25] MEDS: ACETAMINOPHEN 325 MG TAB PO PRN (05:41)
[2023-04-25 07:03] LABS: Anion Gap 0 (5-15); Carbon Dioxide 40 mmol/L (20-30); Chloride 89 mmol/L (98-107); Sodium 129 mmol/L (136-145)
[2023-04-25 07:05] LABS: Calcium 9.1 mg/dL (8.5-10.1)
[2023-04-25 07:09] LABS: BUN/Creatinine Ratio 21.2 (10.0-20.0); Blood Urea Nitrogen 24 mg/dL (9-23); Glucose 104 mg/dL (74-106)
[2023-04-25 07:10] LABS: Basophils # (auto) 0 10 ^3/uL (0-0.2); Basophils % (auto) 0.1 % (0.0-2.0); Eosinophils # (auto) 0 10 ^3/uL (0-0.8); Hematocrit 23.3 % (36.0-46.0); Hemoglobin 7.4 g/dL (12.2-16.2); Lymphocytes # (auto) 0.8 10 ^3/uL (0.4-5.4)
[2023-04-25 07:12] LABS: Mean Corpuscular Hemoglobin 25.6 pg (28.0-32.0); Mean Corpuscular Hgb Conc. 31.5 g/dL (32.0-36.0); Mean Corpuscular Volume 81.2 fL (80.0-100.0); Monocytes # (auto) 1.1 10 ^3/uL (0-1.3); Monocytes % (auto) 11.1 % (0.0-12.0); Neutrophils # (auto) 7.8 10 ^3/uL (1.6-8.6); Neutrophils % (auto) 80.8 % (37.0-80.0); Red Blood Cells 2.87 10^6/uL (4.0-5.20); Red Cell Distribution Width 16.1 % (11.8-14.3); White Blood Cell 9.7 10^3/uL (4.4-10.8)
[2023-04-25] MEDS: cefTRIAXone 1GM/50ML D5W 50 ML IV SCH (09:00)
[2023-04-25] MEDS: FUROSEMIDE 40 MG/4 ML VIAL IV SCH (10:29)
[2023-04-25] MEDS: AZITHROMYCIN 500MG/ 250ML 250 ML IV SCH (12:51)
[2023-04-25] MEDS: RIOCIGUAT BASE PO SCH ×2 (14:00→22:14)
[2023-04-25 17:52] LABS: Base Excess 10.9 mmol/L (-2.0-2.0)
[2023-04-25] MEDS: ATORVASTATIN 20 MG TAB PO SCH (22:15)
[2023-04-26] VITALS (15 sets, daily range): BP systolic 105–122; BP diastolic 48–62; PULSE 71–91; RESP 16–20; TEMP 97.3–98.7; O2SAT 88–99
[2023-04-26] MEDS: IPRATROPIUM BROM 0.5 MG/2.5ML INH SOL NEB PRN (00:25)
[2023-04-26] MEDS: ALBUTEROL SULF 2.5 MG/0.5ML(0.5%) NEB SOLN NEB PRN (00:25)
[2023-04-26] MEDS: ACETAMINOPHEN 325 MG TAB PO PRN ×2 (02:16→13:17)
[2023-04-26] MEDS ORDERED: TEMAZEPAM 15 MG CAP PO ONE (03:15)
[2023-04-26 05:14] LABS: Basophils # (auto) 0 10 ^3/uL (0-0.2); Basophils % (auto) 0.2 % (0.0-2.0); Eosinophils # (auto) 0.1 10 ^3/uL (0-0.8); Hemoglobin 7.3 g/dL (12.2-16.2); Lymphocytes # (auto) 0.9 10 ^3/uL (0.4-5.4); Monocytes # (auto) 0.9 10 ^3/uL (0-1.3); Nucleated Red Blood Cells % 0.1 %
[2023-04-26 05:17] LABS: Eosinophils % (auto) 1.1 % (0.0-7.0); Hematocrit 23.1 % (36.0-46.0); Mean Corpuscular Hemoglobin 25.6 pg (28.0-32.0); Mean Corpuscular Hgb Conc. 31.7 g/dL (32.0-36.0); Monocytes % (auto) 14.1 % (0.0-12.0); Neutrophils # (auto) 4.5 10 ^3/uL (1.6-8.6); Neutrophils % (auto) 70.6 % (37.0-80.0); Red Blood Cells 2.85 10^6/uL (4.0-5.20); Red Cell Distribution Width 16.3 % (11.8-14.3); White Blood Cell 6.4 10^3/uL (4.4-10.8)
[2023-04-26 05:24] LABS: Chloride 91 mmol/L (98-107); Potassium 4.1 mmol/L (3.5-5.1); Sodium 131 mmol/L (136-145)
[2023-04-26 05:25] LABS: Calcium 8.7 mg/dL (8.5-10.1)
[2023-04-26 05:30] LABS: BUN/Creatinine Ratio 26.2 (10.0-20.0); Blood Urea Nitrogen 22 mg/dL (9-23); Glucose 99 mg/dL (74-106)
[2023-04-26 05:51] LABS: Carbon Dioxide > 40 mmol/L (20-30)
[2023-04-26] MEDS: RIOCIGUAT BASE PO SCH ×3 (05:54→21:17)
[2023-04-26 06:52] LABS: Base Excess 18.3 mmol/L (-2.0-2.0)
[2023-04-26] MEDS: cefTRIAXone 1GM/50ML D5W 50 ML IV SCH (09:44)
[2023-04-26 09:55] LABS: Base Excess 15.2 mmol/L (-2.0-2.0)
[2023-04-26] MEDS: amLODIPine BESYLATE 5 MG TAB PO SCH (10:00)
[2023-04-26] MEDS: Ambrisentan 10 MG PO SCH (10:00)
[2023-04-26] MEDS: AZITHROMYCIN 500MG/ 250ML 250 ML IV SCH (13:16)
[2023-04-26] MEDS: CITALOPRAM HYDROBR 20 MG TAB PO SCH (13:18)
[2023-04-26] MEDS: FUROSEMIDE 40 MG/4 ML VIAL IV SCH (13:18)
[2023-04-26] MEDS ORDERED: LACTULOSE 20Gm/30ML SOLN PO ONE (14:15)
[2023-04-26] MEDS: ATORVASTATIN 20 MG TAB PO SCH (21:17)
[2023-04-27] VITALS (15 sets, daily range): BP systolic 104–130; BP diastolic 29–50; PULSE 66–93; RESP 17–20; TEMP 97.7–98; O2SAT 90–100
[2023-04-27 04:55] LABS: Basophils # (auto) 0 10 ^3/uL (0-0.2); Basophils % (auto) 0.4 % (0.0-2.0); Eosinophils # (auto) 0.1 10 ^3/uL (0-0.8); Eosinophils % (auto) 2.7 % (0.0-7.0); Monocytes # (auto) 0.6 10 ^3/uL (0-1.3); Red Cell Distribution Width 16.1 % (11.8-14.3); White Blood Cell 5.4 10^3/uL (4.4-10.8)
[2023-04-27 04:57] LABS: Hematocrit 24.3 % (36.0-46.0); Hemoglobin 7.5 g/dL (12.2-16.2); Lymphocytes # (auto) 1.2 10 ^3/uL (0.4-5.4); Lymphocytes % (auto) 21.8 % (10.0-50.0); Mean Corpuscular Hemoglobin 25.6 pg (28.0-32.0); Mean Corpuscular Volume 82.6 fL (80.0-100.0); Monocytes % (auto) 11.6 % (0.0-12.0); Neutrophils # (auto) 3.4 10 ^3/uL (1.6-8.6); Neutrophils % (auto) 63.5 % (37.0-80.0); Red Blood Cells 2.94 10^6/uL (4.0-5.20)
[2023-04-27 05:01] LABS: Calcium 8.2 mg/dL (8.7-10.4); Chloride 92 mmol/L (98-107); Potassium 4.4 mmol/L (3.5-5.1); Sodium 134 mmol/L (136-145)
[2023-04-27 05:07] LABS: BUN/Creatinine Ratio 18.8 (10.0-20.0); Blood Urea Nitrogen 13 mg/dL (9-23); Glucose 82 mg/dL (74-106)
[2023-04-27 05:20] LABS: Anion Gap 1.99999 (5-15)
[2023-04-27 05:22] LABS: Carbon Dioxide > 40 mmol/L (20-30)
[2023-04-27] MEDS: RIOCIGUAT BASE PO SCH ×3 (06:46→21:24)
[2023-04-27] MEDS ORDERED: acetaZOLAMIDE SODIUM 500 MG VL IV ONE (08:15)
[2023-04-27] MEDS: LACTULOSE 20Gm/30ML SOLN PO SCH (10:29)
[2023-04-27] MEDS: cefTRIAXone 1GM/50ML D5W 50 ML IV SCH (10:29)
[2023-04-27] MEDS: AZITHROMYCIN 500MG/ 250ML 250 ML IV SCH (10:30)
[2023-04-27] MEDS: Ambrisentan 10 MG PO SCH (10:31)
[2023-04-27] MEDS: CITALOPRAM HYDROBR 20 MG TAB PO SCH (10:31)
[2023-04-27] MEDS: amLODIPine BESYLATE 5 MG TAB PO SCH (10:31)
[2023-04-27] MEDS: ALBUTEROL SULF 2.5 MG/0.5ML(0.5%) NEB SOLN NEB PRN (19:15)
[2023-04-27] MEDS: IPRATROPIUM BROM 0.5 MG/2.5ML INH SOL NEB PRN (19:15)
[2023-04-27] MEDS: ATORVASTATIN 20 MG TAB PO SCH (21:24)
[2023-04-28] VITALS (12 sets, daily range): BP systolic 117–133; BP diastolic 36–71; PULSE 78–98; RESP 16–22; TEMP 98.2–99.4; O2SAT 92–98
[2023-04-28 06:02] LABS: Basophils # (auto) 0 10 ^3/uL (0-0.2); Eosinophils # (auto) 0.1 10 ^3/uL (0-0.8); Hematocrit 24.3 % (36.0-46.0); Hemoglobin 7.5 g/dL (12.2-16.2); Mean Corpuscular Hemoglobin 25.5 pg (28.0-32.0); Mean Corpuscular Hgb Conc. 30.8 g/dL (32.0-36.0); Nucleated Red Blood Cells % 0.1 %
[2023-04-28 06:04] LABS: Basophils % (auto) 0.3 % (0.0-2.0); Eosinophils % (auto) 0.7 % (0.0-7.0); Lymphocytes # (auto) 1.1 10 ^3/uL (0.4-5.4); Lymphocytes % (auto) 14.4 % (10.0-50.0); Monocytes # (auto) 0.8 10 ^3/uL (0-1.3); Neutrophils # (auto) 5.6 10 ^3/uL (1.6-8.6); Neutrophils % (auto) 74.6 % (37.0-80.0); Red Blood Cells 2.92 10^6/uL (4.0-5.20); Red Cell Distribution Width 16.4 % (11.8-14.3); White Blood Cell 7.5 10^3/uL (4.4-10.8)
[2023-04-28 06:10] LABS: Anion Gap 2 (5-15); Carbon Dioxide 39 mmol/L (20-30); Chloride 94 mmol/L (98-107); Sodium 135 mmol/L (136-145)
[2023-04-28 06:11] LABS: Calcium 8.8 mg/dL (8.5-10.1)
[2023-04-28 06:16] LABS: BUN/Creatinine Ratio 14.5 (10.0-20.0); Blood Urea Nitrogen 11 mg/dL (9-23); Glucose 98 mg/dL (74-106)
[2023-04-28] MEDS: RIOCIGUAT BASE PO SCH ×3 (06:23→21:25)
[2023-04-28] MEDS: ACETAMINOPHEN 325 MG TAB PO PRN ×2 (08:40→21:26)
[2023-04-28] MEDS: cefTRIAXone 1GM/50ML D5W 50 ML IV SCH (09:34)
[2023-04-28] MEDS: CITALOPRAM HYDROBR 20 MG TAB PO SCH (09:34)
[2023-04-28] MEDS: LACTULOSE 20Gm/30ML SOLN PO SCH (09:35)
[2023-04-28] MEDS: Ambrisentan 10 MG PO SCH (09:36)
[2023-04-28] MEDS: AZITHROMYCIN 500MG/ 250ML 250 ML IV SCH (10:00)
[2023-04-28] MEDS: amLODIPine BESYLATE 5 MG TAB PO SCH (10:00)
[2023-04-28] MEDS ORDERED: MORPHINE SULFATE INJ 2 MG/ml SYRG IV PRN (11:45)
[2023-04-28] MEDS ORDERED: acetaZOLAMIDE SODIUM 500 MG VL IV ONE (14:45)
[2023-04-28] MEDS: ATORVASTATIN 20 MG TAB PO SCH (21:25)
[2023-04-29] VITALS (9 sets, daily range): BP systolic 110–115; BP diastolic 37–54; PULSE 77–91; RESP 18–28; TEMP 36.9; O2SAT 93–99
[2023-04-29] MEDS: ACETAMINOPHEN 325 MG TAB PO PRN (02:23)
[2023-04-29] MEDS: RIOCIGUAT BASE PO SCH ×3 (06:40→21:34)
[2023-04-29] MEDS: cefTRIAXone 1GM/50ML D5W 50 ML IV SCH (08:25)
[2023-04-29] MEDS: Ambrisentan 10 MG PO SCH (10:00)
[2023-04-29] MEDS: amLODIPine BESYLATE 5 MG TAB PO SCH (10:00)
[2023-04-29] MEDS: LACTULOSE 20Gm/30ML SOLN PO SCH (11:33)
[2023-04-29] MEDS: AZITHROMYCIN 500MG/ 250ML 250 ML IV SCH (11:33)
[2023-04-29] MEDS: CITALOPRAM HYDROBR 20 MG TAB PO SCH (11:33)
[2023-04-29] MEDS: ATORVASTATIN 20 MG TAB PO SCH (21:34)
[2023-04-30] VITALS (9 sets, daily range): BP systolic 107–117; BP diastolic 43–50; PULSE 70–95; RESP 17–20; TEMP 98–98.8; O2SAT 93–98
[2023-04-30] MEDS: ACETAMINOPHEN 325 MG TAB PO PRN ×2 (02:43→17:09)
[2023-04-30 05:32] LABS: Calcium 8.1 mg/dL (8.7-10.4); Chloride 94 mmol/L (98-107); Potassium 3.7 mmol/L (3.5-5.1); Sodium 135 mmol/L (136-145)
[2023-04-30 05:33] LABS: Anion Gap 1 (5-15); Carbon Dioxide 40 mmol/L (20-30)
[2023-04-30 05:38] LABS: BUN/Creatinine Ratio 20.9 (10.0-20.0); Blood Urea Nitrogen 19 mg/dL (9-23); Glucose 97 mg/dL (74-106)
[2023-04-30] MEDS: RIOCIGUAT BASE PO SCH ×3 (05:54→20:43)
[2023-04-30] MEDS: cefTRIAXone 1GM/50ML D5W 50 ML IV SCH (08:46)
[2023-04-30] MEDS: LACTULOSE 20Gm/30ML SOLN PO SCH (10:15)
[2023-04-30] MEDS: Ambrisentan 10 MG PO SCH (10:15)
[2023-04-30] MEDS: AZITHROMYCIN 500MG/ 250ML 250 ML IV SCH (10:15)
[2023-04-30] MEDS: CITALOPRAM HYDROBR 20 MG TAB PO SCH (10:15)
[2023-04-30] MEDS: amLODIPine BESYLATE 5 MG TAB PO SCH (10:19)
[2023-04-30] MEDS: ALBUTEROL SULF 2.5 MG/0.5ML(0.5%) NEB SOLN NEB PRN (13:01)
[2023-04-30] MEDS: IPRATROPIUM BROM 0.5 MG/2.5ML INH SOL NEB PRN (13:01)
[2023-04-30] MEDS ORDERED: FUROSEMIDE 20 MG/2 ML VIAL IV ONE (16:30)
[2023-04-30] MEDS: ATORVASTATIN 20 MG TAB PO SCH (20:43)
[2023-05-01] VITALS (13 sets, daily range): BP systolic 102–126; BP diastolic 38–48; PULSE 72–101; RESP 18–20; TEMP 98–98.4; O2SAT 93–100
[2023-05-01] MEDS: ACETAMINOPHEN 325 MG TAB PO PRN ×2 (01:14→17:04)
[2023-05-01] MEDS ORDERED: DOCUSATE SOD 100 MG CAP PO PRN (02:45)
[2023-05-01] MEDS: RIOCIGUAT BASE PO SCH ×3 (06:07→21:59)
[2023-05-01] MEDS: ALBUTEROL SULF 2.5 MG/0.5ML(0.5%) NEB SOLN NEB PRN ×3 (06:11→22:05)
[2023-05-01] MEDS: IPRATROPIUM BROM 0.5 MG/2.5ML INH SOL NEB PRN ×3 (06:11→22:05)
[2023-05-01] MEDS: CITALOPRAM HYDROBR 20 MG TAB PO SCH (09:50)
[2023-05-01] MEDS: LACTULOSE 20Gm/30ML SOLN PO SCH (09:50)
[2023-05-01] MEDS: Ambrisentan 10 MG PO SCH (09:51)
[2023-05-01] MEDS: amLODIPine BESYLATE 5 MG TAB PO SCH (09:52)
[2023-05-01] MEDS: FUROSEMIDE 20 MG/2 ML VIAL IV SCH (09:53)
[2023-05-01] MEDS: cefTRIAXone 1GM/50ML D5W 50 ML IV SCH (09:54)
[2023-05-01] MEDS ORDERED: guaiFENesin-DM 100/10mg/5ml SYR PO PRN (20:45)
[2023-05-01] MEDS: ATORVASTATIN 20 MG TAB PO SCH (21:59)
[2023-05-02] VITALS (7 sets, daily range): BP systolic 122–154; BP diastolic 53–71; PULSE 83–91; RESP 16–20; TEMP 98.6; O2SAT 94–100
[2023-05-02] MEDS: ACETAMINOPHEN 325 MG TAB PO PRN (00:27)
[2023-05-02] MEDS: RIOCIGUAT BASE PO SCH ×2 (05:51→13:04)
[2023-05-02] MEDS: IPRATROPIUM BROM 0.5 MG/2.5ML INH SOL NEB PRN (06:10)
[2023-05-02] MEDS: ALBUTEROL SULF 2.5 MG/0.5ML(0.5%) NEB SOLN NEB PRN (06:10)
[2023-05-02] MEDS: CITALOPRAM HYDROBR 20 MG TAB PO SCH (08:56)
[2023-05-02] MEDS: amLODIPine BESYLATE 5 MG TAB PO SCH (08:57)
[2023-05-02] MEDS: FUROSEMIDE 20 MG/2 ML VIAL IV SCH (08:57)
[2023-05-02] MEDS: Ambrisentan 10 MG PO SCH (08:57)
[2023-05-02] MEDS: LACTULOSE 20Gm/30ML SOLN PO SCH (08:58)
[2023-05-03] MEDS ORDERED: FUROSEMIDE 40 MG TAB PO SCH (10:00)
== END 2023-05-02 16:00 | DRG 133 ==
LOC: ER 19:08 → TELE 22:10 → TELE-WESTW 04-24 21:56
PROVIDERS: ADMIT Nurse Practitioner; ATTEND Internal Medicine Pulmonary Disease
PROC: 5A09357 Assistance with Respiratory Ventilation, Less than 24 Consecutive Hours, Continuous Positive Airway Pressure (ICD-10-PCS; principal; 2023-04-26)
PROC: 5A09357 Assistance with Respiratory Ventilation, Less than 24 Consecutive Hours, Continuous Positive Airway Pressure (ICD-10-PCS; 2023-04-27)
PROC: 5A09357 Assistance with Respiratory Ventilation, Less than 24 Consecutive Hours, Continuous Positive Airway Pressure (ICD-10-PCS; 2023-04-30)
DX: J96.21 Acute and chronic respiratory failure with hypoxia (principal); N17.0 Acute kidney failure with tubular necrosis; I50.43 Acute on chronic combined systolic (congestive) and diastolic (congestive) heart failure; J15.69 Pneumonia due to other Gram-negative bacteria; E87.29 Other acidosis; E87.1 Hypo-osmolality and hyponatremia; I11.0 Hypertensive heart disease with heart failure; I27.20 Pulmonary hypertension, unspecified; D64.9 Anemia, unspecified; E11.9 Type 2 diabetes mellitus without complications; J96.22 Acute and chronic respiratory failure with hypercapnia; E87.5 Hyperkalemia; J44.0 Chronic obstructive pulmonary disease with (acute) lower respiratory infection; E78.5 Hyperlipidemia, unspecified; E66.01 Morbid (severe) obesity due to excess calories; K59.00 Constipation, unspecified; Z99.81 Dependence on supplemental oxygen; Z68.36 Body mass index [BMI] 36.0-36.9, adult; Z79.891 Long term (current) use of opiate analgesic; Z79.899 Other long term (current) drug therapy
CPT/HCPCS: 36415; 36600; 71045; 73721; 74150; 76775; 80048; 80053; 81001; 82570; 82805; 82962; 83880; 83930; 83935; 84132; 84300; 84484; 84550; 85007; 85025; 85027; 87086; 93005; 94640; 94660; 97110; 97116; 97163; 97530; 99291; G0378; J1815; J2405

== ENCOUNTER 2023-07-12 03:05 | Inpatient (IN) | payer MEDICAID ==
[2023-07-12] VITALS (9 sets, daily range): BP systolic 132–153; BP diastolic 47–61; PULSE 75–89; RESP 12–20; TEMP 98.2–101.3; O2SAT 96–100
[~2023-07-12] VITALS: Ht 160 cm; Wt 77.5 kg
[~2023-07-12 03:05] MED LIST changes: +LOSA-534 PO; -LOSA50TA46 PO
[2023-07-12 07:20] LABS: Basophils # (auto) 0 10 ^3/uL (0-0.2); Eosinophils # (auto) 0.1 10 ^3/uL (0-0.8); Hematocrit 25.3 % (36.0-46.0); Hemoglobin 7.6 g/dL (12.2-16.2); Lymphocytes # (auto) 1.4 10 ^3/uL (0.4-5.4); Mean Corpuscular Hemoglobin 24.4 pg (28.0-32.0); Mean Corpuscular Hgb Conc. 30.1 g/dL (32.0-36.0); Monocytes # (auto) 0.4 10 ^3/uL (0-1.3); Red Blood Cells 3.12 10^6/uL (4.0-5.20)
[2023-07-12 07:22] LABS: Basophils % (auto) 0.5 % (0.0-2.0); Eosinophils % (auto) 1.4 % (0.0-7.0); Lymphocytes % (auto) 22.6 % (10.0-50.0); Mean Corpuscular Volume 81.1 fL (80.0-100.0); Monocytes % (auto) 6.6 % (0.0-12.0); Neutrophils # (auto) 4.2 10 ^3/uL (1.6-8.6); Neutrophils % (auto) 68.9 % (37.0-80.0); Red Cell Distribution Width 18.6 % (11.8-14.3)
[2023-07-12 07:35] LABS: Alanine Aminotransferase 18 U/L (7-40); Albumin 3.9 g/dL (3.2-4.8); Alkaline Phosphatase 39 U/L (46-116); Aspartate Aminotransferase 27 U/L (13-40); Bilirubin, Total 0.4 mg/dL (0.2-1.0); Blood Urea Nitrogen 20 mg/dL (9-23); Calcium 8.6 mg/dL (8.5-10.1); Chloride 99 mmol/L (98-107); Glucose 118 mg/dL (74-106); Potassium 4.1 mmol/L (3.5-5.1); Sodium 138 mmol/L (136-145); Total Protein 5.8 g/dL (5.7-8.2)
[2023-07-12 07:38] LABS: INR 1.05 (0.9-1.15); Partial Thromboplastin Time 30.5 SEC (24.5-34.5)
[2023-07-12 07:40] LABS: Anion Gap -1.00001 (5-15)
[2023-07-12 07:43] LABS: Carbon Dioxide > 40 mmol/L (20-30)
[2023-07-12] MEDS: ACETAMINOPHEN 500 MG TAB PO ONE (09:07)
[2023-07-12] MEDS: FUROSEMIDE 40 MG/4 ML VIAL IV ONE (09:45)
[2023-07-12] MEDS: FUROSEMIDE 20 MG/2 ML VIAL IV SCH (10:00)
[2023-07-12] MEDS ORDERED: MORPHINE SULFATE INJ 2 MG/ml SYRG IV PRN (10:00)
[2023-07-12] MEDS ORDERED: ONDANSETRON HCL 4 MG/2 ML VIAL IV PRN (10:00)
[2023-07-12] MEDS ORDERED: NITROGLYCERIN 0.4 MG SL TAB SL PRN (10:00)
[2023-07-12] MEDS ORDERED: DOCUSATE SOD 100 MG CAP PO PRN (10:00)
[2023-07-12 11:26] LABS: Base Excess 10.6 mmol/L (-2.0-2.0)
[2023-07-12] MEDS: ACETAMINOPHEN 325 MG TAB PO PRN (19:51)
[2023-07-12] MEDS: ALBUTEROL SULF 2.5 MG/0.5ML(0.5%) NEB SOLN NEB PRN (20:43)
[2023-07-12] MEDS: IPRATROPIUM BROM 0.5 MG/2.5ML INH SOL NEB PRN (20:45)
[2023-07-13] VITALS (7 sets, daily range): BP systolic 124–149; BP diastolic 50–60; PULSE 63–79; RESP 16–18; TEMP 36.7; O2SAT 95–100
[2023-07-13 05:34] LABS: Basophils # (auto) 0 10 ^3/uL (0-0.2); Basophils % (auto) 0.5 % (0.0-2.0); Eosinophils # (auto) 0.1 10 ^3/uL (0-0.8); Lymphocytes # (auto) 1.4 10 ^3/uL (0.4-5.4); Monocytes # (auto) 0.5 10 ^3/uL (0-1.3); Nucleated Red Blood Cells % 0.1 %
[2023-07-13 05:39] LABS: Eosinophils % (auto) 1.8 % (0.0-7.0); Hematocrit 22.2 % (36.0-46.0); Lymphocytes % (auto) 27.6 % (10.0-50.0); Mean Corpuscular Hemoglobin 24.8 pg (28.0-32.0); Mean Corpuscular Hgb Conc. 30.5 g/dL (32.0-36.0); Mean Corpuscular Volume 81.3 fL (80.0-100.0); Monocytes % (auto) 10.2 % (0.0-12.0); Neutrophils % (auto) 59.9 % (37.0-80.0); Red Blood Cells 2.73 10^6/uL (4.0-5.20); Red Cell Distribution Width 18.2 % (11.8-14.3)
[2023-07-13 05:54] LABS: Alanine Aminotransferase 15 U/L (7-40); Albumin 3.5 g/dL (3.2-4.8); Alkaline Phosphatase 32 U/L (46-116); Anion Gap 4 (5-15); Aspartate Aminotransferase 24 U/L (13-40); BUN/Creatinine Ratio 20.5 (10.0-20.0); Bilirubin, Total 0.4 mg/dL (0.2-1.0); Blood Urea Nitrogen 15 mg/dL (9-23); Calcium 8.5 mg/dL (8.5-10.1); Carbon Dioxide 37 mmol/L (20-30); Chloride 101 mmol/L (98-107); Glucose 84 mg/dL (74-106); Potassium 3.8 mmol/L (3.5-5.1); Sodium 142 mmol/L (136-145); Total Protein 5.4 g/dL (5.7-8.2)
[2023-07-13 06:10] LABS: Hemoglobin 6.8 g/dL (12.2-16.2)
[2023-07-13 06:39] LABS: Platelet Estimate Decreased
[2023-07-13] MEDS: CITALOPRAM HYDROBR 20 MG TAB PO SCH (09:38)
[2023-07-13] MEDS: PANTOPRAZOLE 40 MG TAB PO SCH (09:38)
[2023-07-13] MEDS: AMBRISENTAN 10 MG PO SCH (09:39)
[2023-07-13] MEDS: amLODIPine BESYLATE 5 MG TAB PO SCH (09:39)
[2023-07-13] MEDS: LOSARTAN POTASSIUM 50 MG TAB PO SCH (09:39)
[2023-07-13] MEDS ORDERED: PATIENTS OWN MEDICATION (Omeprazole (Gnp Omeprazole) 40 MG) PO SCH (10:00)
[2023-07-13] MEDS ORDERED: PATIENTS OWN MEDICATION (Escitalopram Oxalate (Lexapro) 1 TAB) PO SCH (10:00)
[2023-07-13] MEDS: IRON SUCROSE COMPLEX 100 ML IV SCH (10:24)
[2023-07-13] MEDS ORDERED: FER325T PO (11:20)
== END 2023-07-13 14:51 | disposition hospice, home (50) | DRG 194 ==
LOC: ER 03:05 → EDBD 03:05 → TELE 10:26 → TELE-WESTW 16:40
PROVIDERS: ADMIT Internal Medicine; ATTEND Internal Medicine
DX: I11.0 Hypertensive heart disease with heart failure (principal); J96.21 Acute and chronic respiratory failure with hypoxia; I27.20 Pulmonary hypertension, unspecified; E11.9 Type 2 diabetes mellitus without complications; D64.9 Anemia, unspecified; E78.5 Hyperlipidemia, unspecified; Z51.5 Encounter for palliative care; R04.0 Epistaxis; I50.33 Acute on chronic diastolic (congestive) heart failure; J96.22 Acute and chronic respiratory failure with hypercapnia; J44.89 Other specified chronic obstructive pulmonary disease; Z79.899 Other long term (current) drug therapy; Z79.4 Long term (current) use of insulin
CPT/HCPCS: 30901; 36415; 36600; 71045; 80053; 82805; 83880; 84484; 85025; 85610; 85730; 87081; 93005; 94640; 96374; G0378; J1756

== ENCOUNTER 2023-07-29 11:59 | Inpatient (IN) | payer MEDICAID ==
[2023-07-29] VITALS (11 sets, daily range): BP systolic 98–152; BP diastolic 38–78; PULSE 52–114; RESP 14–24; TEMP 97.3–98.2; O2SAT 90–99
[~2023-07-29] VITALS: Ht 162.6 cm; Wt 69.7 kg
[~2023-07-29 11:59] MED LIST changes: -BENA40TA83 PO; +FER325T PO; -PRED20TA2 PO
[2023-07-29 12:45] LABS: Basophils # (auto) 0 10 ^3/uL (0-0.2); Basophils % (auto) 0.3 % (0.0-2.0); Eosinophils # (auto) 0.1 10 ^3/uL (0-0.8); Eosinophils % (auto) 1.1 % (0.0-7.0); Hematocrit 25.6 % (36.0-46.0); Hemoglobin 7.7 g/dL (12.2-16.2); Lymphocytes # (auto) 1.5 10 ^3/uL (0.4-5.4); Lymphocytes % (auto) 24.2 % (10.0-50.0); Mean Corpuscular Hemoglobin 25.9 pg (28.0-32.0); Mean Corpuscular Volume 86.3 fL (80.0-100.0); Monocytes # (auto) 0.6 10 ^3/uL (0-1.3); Monocytes % (auto) 9.3 % (0.0-12.0); Neutrophils % (auto) 65.1 % (37.0-80.0); Nucleated Red Blood Cells % 0.2 %; Red Blood Cells 2.97 10^6/uL (4.0-5.20); Red Cell Distribution Width 19.9 % (11.8-14.3); White Blood Cell 6.1 10^3/uL (4.4-10.8)
[2023-07-29] MEDS ORDERED: cefTRIAXone 1GM/50ML D5W 50 ML IV ONE (12:45)
[2023-07-29] MEDS: ALBUTEROL SULF 2.5 MG/0.5ML(0.5%) NEB SOLN NEB ONE (13:00)
[2023-07-29] MEDS: IPRATROPIUM BROM 0.5 MG/2.5ML INH SOL NEB ONE (13:00)
[2023-07-29 13:02] LABS: Albumin 3.9 g/dL (3.2-4.8); Alkaline Phosphatase 38 U/L (46-116); Aspartate Aminotransferase 19 U/L (13-40); BUN/Creatinine Ratio 23.8 (10.0-20.0); Bilirubin, Total 0.4 mg/dL (0.2-1.0); Blood Urea Nitrogen 19 mg/dL (9-23); Chloride 97 mmol/L (98-107); Glucose 103 mg/dL (74-106); Sodium 137 mmol/L (136-145); Total Protein 6.4 g/dL (5.7-8.2)
[2023-07-29] MEDS: ETOMIDATE (2MG/ML) 20ML VIAL IV ONE (13:02)
[2023-07-29 13:03] LABS: Alanine Aminotransferase < 9 U/L (7-40)
[2023-07-29] MEDS: ROCURONIUM 10MG/ML 10ML VIAL IV ONE ×3 (13:03→16:33)
[2023-07-29] MEDS: MIDAZOLAM DRIP 50 mg/50mL 50 ML IV ONE (13:04)
[2023-07-29] MEDS: MIDAZOLAM DRIP 50 mg/50mL 50 ML IV SCH (13:04)
[2023-07-29] MEDS: NOREPINEPHRINE 8 MG/250ML KIT 250 ML IV SCH (13:05)
[2023-07-29 13:06] LABS: Anion Gap -0.00001 (5-15); Carbon Dioxide > 40 mmol/L (20-30)
[2023-07-29] MEDS: methylPREDNISolone SOD SUCC 125 MG/2 ML VL IV ONE (13:11)
[2023-07-29] MEDS: AZITHROMYCIN 500MG/ 250ML 250 ML IV ONE (13:12)
[2023-07-29] MEDS: FUROSEMIDE 40 MG/4 ML VIAL IV ONE (13:12)
[2023-07-29] MEDS ORDERED: ONDANSETRON HCL 4 MG/2 ML VIAL IV PRN (14:00)
[2023-07-29] MEDS ORDERED: VANCOMYCIN PER PHARMACY 0 MG IV SCH (14:00)
[2023-07-29] MEDS ORDERED: PIPERACILLIN-TAZO 4.5GM 100 ML IV SCH (14:00)
[2023-07-29] MEDS ORDERED: HYDROcodone-ACET 5/325MG TAB PO PRN (14:00)
[2023-07-29] MEDS ORDERED: HYDROmorphone HCL 2 MG/ML VL/or syr IV PRN (14:00)
[2023-07-29 14:09] LABS: Urine Bacteria None Seen /hpf (None Seen); Urine WBC None Seen /hpf (0 - 5)
[2023-07-29 14:16] LABS: Base Excess 13.3 mmol/L (-2.0-2.0)
[2023-07-29 14:26] LABS: Urine Blood Negative /uL (Negative); Urine Clarity Clear (Clear); Urine Color Colorless (Yellow); Urine Protein, UAD Negative (Negative); Urine Specific Gravity 1.006 (1.001-1.035); Urine Urobilinogen Normal (Negative)
[2023-07-29] MEDS ORDERED: PROPOFOL 100 ML IV SCH (15:15)
[2023-07-29] MEDS: PROPOFOL 100 ML IV SCH (15:26)
[2023-07-29] MEDS: PROPOFOL 100 ML IV ONE (15:26)
[2023-07-29] MEDS ORDERED: MIDAZOLAM HCL 2MG/2ML 2ml VIAL (1mg/ml) IV PRN (16:00)
[2023-07-29] MEDS: PIPERACILLIN-TAZOB 3.375GM 100 ML IV ONE (16:00)
[2023-07-29] MEDS ORDERED: VANCOMYCIN 1GM/200ML 200 ML IV ONE (16:00)
[2023-07-29] MEDS: SODIUM CHLOR 0.9% PF (SALINE LOCK) 10ML VIAL/SYR IV SCH (16:01)
[2023-07-29] MEDS: methylPREDNISolone SOD SUCC 125 MG/2 ML VL IV SCH (16:02)
[2023-07-29] MEDS: PANTOPRAZOLE 40 MG/10 ML VIAL INJ IV SCH (16:02)
[2023-07-29] MEDS: VANCOMYCIN 1GM/200ML 200 ML IV SCH (20:45)
[2023-07-29] MEDS: PIPERACILLIN-TAZOB 3.375GM 100 ML IV SCH (23:48)
[2023-07-30] VITALS (108 sets, daily range): BP systolic 87–157; BP diastolic 22–91; PULSE 52–98; RESP 12–20; TEMP 97.2–99; O2SAT 91–100
[2023-07-30 03:58] LABS: Basophils # (auto) 0 10 ^3/uL (0-0.2); Basophils % (auto) 0.1 % (0.0-2.0); Eosinophils # (auto) 0 10 ^3/uL (0-0.8); Hemoglobin 7.3 g/dL (12.2-16.2); Monocytes # (auto) 0.1 10 ^3/uL (0-1.3); Monocytes % (auto) 1.1 % (0.0-12.0); Nucleated Red Blood Cells % 0.2 %; White Blood Cell 4.5 10^3/uL (4.4-10.8)
[2023-07-30 04:01] LABS: Eosinophils % (auto) 0.1 % (0.0-7.0); Hematocrit 23.2 % (36.0-46.0); Lymphocytes # (auto) 0.7 10 ^3/uL (0.4-5.4); Lymphocytes % (auto) 14.9 % (10.0-50.0); Mean Corpuscular Hemoglobin 25.9 pg (28.0-32.0); Mean Corpuscular Hgb Conc. 31.3 g/dL (32.0-36.0); Mean Corpuscular Volume 82.7 fL (80.0-100.0); Neutrophils # (auto) 3.7 10 ^3/uL (1.6-8.6); Neutrophils % (auto) 83.8 % (37.0-80.0)
[2023-07-30 04:10] LABS: Alkaline Phosphatase 34 U/L (46-116); Anion Gap 4 (5-15); BUN/Creatinine Ratio 25.6 (10.0-20.0); Blood Urea Nitrogen 22 mg/dL (9-23); Carbon Dioxide 37 mmol/L (20-30); Chloride 94 mmol/L (98-107); Glucose 179 mg/dL (74-106); Potassium 3.8 mmol/L (3.5-5.1); Sodium 135 mmol/L (136-145)
[2023-07-30 04:12] LABS: Albumin 3.5 g/dL (3.2-4.8); Aspartate Aminotransferase 13 U/L (13-40); Bilirubin, Total 0.5 mg/dL (0.2-1.0); Total Protein 5.6 g/dL (5.7-8.2)
[2023-07-30 04:15] LABS: % Iron Saturation 6.7 % (15-50); Red Cell Distribution Width 20.2 % (11.8-14.3)
[2023-07-30 04:41] LABS: Alanine Aminotransferase < 9 U/L (7-40)
[2023-07-30 07:40] LABS: Base Excess 12.4 mmol/L (-2.0-2.0)
[2023-07-30] MEDS: ENOXAPARIN SOD 40 MG/0.4 ML SYRINGE SC SCH (07:43)
[2023-07-30] MEDS: FERROUS SULFATE 325mg EC TAB PO SCH (07:44)
[2023-07-30] MEDS: CITALOPRAM HYDROBR 20 MG TAB PO SCH (07:44)
[2023-07-30] MEDS: PIPERACILLIN-TAZOB 3.375GM 100 ML IV ONE (08:11)
[2023-07-30 10:19] LABS: Phosphorus 3.8 mg/dL (2.4-5.1)
[2023-07-30 11:11] LABS: Magnesium 1.8 mg/dL (1.6-2.6)
[2023-07-30 11:28] LABS: Amphetamine Screen, Urine Neg (NEGATIVE); Barbiturate Scree,Urine Neg (NEGATIVE); Benzodiazephine Screen, Urine Pos (NEGATIVE); Cannabinoid Screen, Urine Neg (NEGATIVE); Cocaine Screen, Urine Neg (NEGATIVE); Opiate Scree,Urine Neg (NEGATIVE); Phencyclidine Screen, Urine Neg (NEGATIVE)
[2023-07-30 11:47] LABS: Hematocrit 25.2 % (36.0-46.0)
[2023-07-30 12:01] LABS: INR 1.08 (0.9-1.15); Partial Thromboplastin Time 29.8 SEC (24.5-34.5); Prothrombin Time 11.4 sec (9.3-11.8)
[2023-07-30] MEDS: DOXYCYCLINE 100MG/250ML 250 ML IV SCH (16:34)
[2023-07-30] MEDS: LEVALBUTEROL HCL 1.25 MG/3 ML NEB NEB SCH (18:08)
[2023-07-30] MEDS: IPRATROPIUM BROM 0.5 MG/2.5ML INH SOL NEB SCH (18:08)
[2023-07-30 18:23] LABS: Hematocrit 24.6 % (36.0-46.0); Hemoglobin 7.6 g/dL (12.2-16.2)
[2023-07-30] MEDS: fentaNYL Drip 2500mCg/250mlNS 250 ML IV SCH (19:45)
[2023-07-30] MEDS: methylPREDNISolone SOD SUCC 40 MG/ML VL IV SCH (20:56)
[2023-07-30] MEDS ORDERED: VANCOMYCIN 1GM/200ML 200 ML IV SCH (21:00)
[2023-07-31] VITALS (107 sets, daily range): BP systolic 91–153; BP diastolic 36–69; PULSE 52–115; RESP 11–19; TEMP 97.5–99; O2SAT 92–100
[2023-07-31 01:02] LABS: Hemoglobin 8.2 g/dL (12.2-16.2)
[2023-07-31 01:04] LABS: Hematocrit 26.2 % (36.0-46.0)
[2023-07-31 03:51] LABS: Basophils # (auto) 0 10 ^3/uL (0-0.2); Eosinophils # (auto) 0 10 ^3/uL (0-0.8); Hematocrit 24.6 % (36.0-46.0); Hemoglobin 7.7 g/dL (12.2-16.2); Lymphocytes # (auto) 0.6 10 ^3/uL (0.4-5.4); Lymphocytes % (auto) 10.5 % (10.0-50.0); Mean Corpuscular Hemoglobin 25.4 pg (28.0-32.0); Mean Corpuscular Hgb Conc. 31.1 g/dL (32.0-36.0); Mean Corpuscular Volume 81.7 fL (80.0-100.0); Monocytes # (auto) 0.3 10 ^3/uL (0-1.3); Monocytes % (auto) 4.9 % (0.0-12.0); Neutrophils # (auto) 4.8 10 ^3/uL (1.6-8.6); Neutrophils % (auto) 84.6 % (37.0-80.0); Nucleated Red Blood Cells % 0.1 %; Red Blood Cells 3.01 10^6/uL (4.0-5.20); White Blood Cell 5.7 10^3/uL (4.4-10.8)
[2023-07-31 03:57] LABS: Alanine Aminotransferase 12 U/L (7-40); Albumin 3.4 g/dL (3.2-4.8); Alkaline Phosphatase 33 U/L (46-116); Anion Gap 5 (5-15); Aspartate Aminotransferase 15 U/L (13-40); BUN/Creatinine Ratio 29.9 (10.0-20.0); Blood Urea Nitrogen 29 mg/dL (9-23); Calcium 8.4 mg/dL (8.7-10.4); Carbon Dioxide 35 mmol/L (20-30); Chloride 95 mmol/L (98-107); Glucose 192 mg/dL (74-106); Magnesium 2.1 mg/dL (1.6-2.6); Phosphorus 4.7 mg/dL (2.4-5.1); Potassium 3.2 mmol/L (3.5-5.1); Sodium 135 mmol/L (136-145)
[2023-07-31 03:58] LABS: Bilirubin, Total 0.5 mg/dL (0.2-1.0); Total Protein 5.7 g/dL (5.7-8.2)
[2023-07-31] MEDS: POTASSIUM CHL 20MEQ/100ML 100 ML IV SCH (08:36)
[2023-07-31 09:20] LABS: Base Excess 7.5 mmol/L (-2.0-2.0)
[2023-07-31] MEDS: fentaNYL Drip 2500mCg/250mlNS 250 ML IV SCH (10:15)
[2023-07-31 10:54] LABS: Free T3 1.7 pg/mL (2.3-4.2)
[2023-07-31 10:56] LABS: Free T4 (Free Thyroxine) 0.89 ng/dL (0.89-1.76)
[2023-07-31] MEDS: FUROSEMIDE 40 MG/4 ML VIAL IV ONE (11:07)
[2023-07-31] MEDS: acetaZOLAMIDE SODIUM 500 MG VL IV ONE (11:49)
[2023-07-31 16:47] LABS: COVID19 ANTIGEN SOFIA FIA NEGATIVE (NEGATIVE); Rapid Influenza A Negative (Negative); Rapid Influenza B Negative (Negative)
[2023-08-01] VITALS (113 sets, daily range): BP systolic 88–167; BP diastolic 38–91; PULSE 57–131; RESP 11–30; TEMP 97.5–99.7; O2SAT 87–100
[2023-08-01 03:51] LABS: Basophils # (auto) 0 10 ^3/uL (0-0.2); Eosinophils # (auto) 0 10 ^3/uL (0-0.8); Lymphocytes # (auto) 0.4 10 ^3/uL (0.4-5.4); Mean Corpuscular Volume 82.8 fL (80.0-100.0); Monocytes # (auto) 0.4 10 ^3/uL (0-1.3); Nucleated Red Blood Cells % 0.1 %; White Blood Cell 6.8 10^3/uL (4.4-10.8)
[2023-08-01 03:56] LABS: Basophils % (auto) 0.1 % (0.0-2.0); Hematocrit 24.9 % (36.0-46.0); Hemoglobin 7.8 g/dL (12.2-16.2); Lymphocytes % (auto) 5.2 % (10.0-50.0); Mean Corpuscular Hemoglobin 25.9 pg (28.0-32.0); Mean Corpuscular Hgb Conc. 31.3 g/dL (32.0-36.0); Monocytes % (auto) 5.9 % (0.0-12.0); Neutrophils % (auto) 88.8 % (37.0-80.0); Red Blood Cells 3.01 10^6/uL (4.0-5.20); Red Cell Distribution Width 20.2 % (11.8-14.3)
[2023-08-01 04:06] LABS: Albumin 3.6 g/dL (3.2-4.8); Alkaline Phosphatase 32 U/L (46-116); Anion Gap 7 (5-15); Aspartate Aminotransferase 15 U/L (13-40); BUN/Creatinine Ratio 30.4 (10.0-20.0); Blood Urea Nitrogen 34 mg/dL (9-23); CRP High Sensitivity 0.53 mg/dL (<1.0); Calcium 8.2 mg/dL (8.5-10.1); Carbon Dioxide 32 mmol/L (20-30); Chloride 97 mmol/L (98-107); Glucose 203 mg/dL (74-106); Potassium 3.1 mmol/L (3.5-5.1); Sodium 136 mmol/L (136-145)
[2023-08-01 04:07] LABS: Bilirubin, Total 0.5 mg/dL (0.2-1.0); Total Protein 5.9 g/dL (5.7-8.2)
[2023-08-01 04:10] LABS: Alanine Aminotransferase 9 U/L (7-40)
[2023-08-01 04:45] LABS: Magnesium 2.1 mg/dL (1.6-2.6)
[2023-08-01] MEDS: POTASSIUM CHL 20MEQ/100ML 100 ML IV ONE (06:43)
[2023-08-01] MEDS ORDERED: POTASSIUM CHL 20MEQ/100ML 100 ML IV SCH (06:45)
[2023-08-01 07:34] LABS: Base Excess 4.4 mmol/L (-2.0-2.0)
[2023-08-01] MEDS: POTASSIUM CHL 20MEQ/100ML 100 ML IV SCH (07:49)
[2023-08-01] MEDS ORDERED: MORPHINE SULFATE INJ 2 MG/ml SYRG IV PRN (09:00)
[2023-08-01] MEDS: MEROPENEM 1GM IVPB 50 ML IV SCH (09:03)
[2023-08-01] MEDS: FUROSEMIDE 40 MG/4 ML VIAL IV SCH ×2 (09:04→21:42)
[2023-08-01] MEDS: methylPREDNISolone SOD SUCC 40 MG/ML VL IV SCH (09:07)
[2023-08-01] MEDS: LABETALOL HCL 5 MG/ML 4ML SYRINGE IV PRN (09:11)
[2023-08-01] MEDS ORDERED: FUROSEMIDE 40 MG/4 ML VIAL IV SCH (10:00)
[2023-08-01] MEDS ORDERED: acetaZOLAMIDE 250 MG TAB PO SCH (10:00)
[2023-08-01] MEDS: acetaZOLAMIDE 250 MG TAB PO SCH (12:39)
[2023-08-01] MEDS: amLODIPine BESYLATE 5 MG TAB PO ONE (12:39)
[2023-08-01] MEDS ORDERED: Glucerna 1.2 Cal 1Liter BOTTLE GT SCH (12:45)
[2023-08-02] VITALS (96 sets, daily range): BP systolic 82–170; BP diastolic 38–90; PULSE 52–126; RESP 10–30; TEMP 92.5–99.3; O2SAT 86–100
[2023-08-02 04:26] LABS: Basophils # (auto) 0 10 ^3/uL (0-0.2); Basophils % (auto) 0.1 % (0.0-2.0); Eosinophils # (auto) 0 10 ^3/uL (0-0.8); Eosinophils % (auto) 0.1 % (0.0-7.0); Hemoglobin 7.5 g/dL (12.2-16.2); Lymphocytes # (auto) 1.4 10 ^3/uL (0.4-5.4); Monocytes # (auto) 0.8 10 ^3/uL (0-1.3); Neutrophils # (auto) 4.6 10 ^3/uL (1.6-8.6); Neutrophils % (auto) 67.4 % (37.0-80.0); Nucleated Red Blood Cells % 0.1 %; White Blood Cell 6.8 10^3/uL (4.4-10.8)
[2023-08-02 04:28] LABS: Hematocrit 24.2 % (36.0-46.0); Lymphocytes % (auto) 20.8 % (10.0-50.0); Mean Corpuscular Hemoglobin 25.6 pg (28.0-32.0); Mean Corpuscular Volume 82.7 fL (80.0-100.0); Monocytes % (auto) 11.6 % (0.0-12.0); Red Blood Cells 2.93 10^6/uL (4.0-5.20)
[2023-08-02 04:31] LABS: Red Cell Distribution Width 20.3 % (11.8-14.3)
[2023-08-02 04:40] LABS: Alanine Aminotransferase 16 U/L (7-40); Albumin 3.4 g/dL (3.2-4.8); Alkaline Phosphatase 28 U/L (46-116); Anion Gap 6 (5-15); Aspartate Aminotransferase 15 U/L (13-40); Bilirubin, Total 0.5 mg/dL (0.2-1.0); Blood Urea Nitrogen 35 mg/dL (9-23); Calcium 8.2 mg/dL (8.7-10.4); Carbon Dioxide 30 mmol/L (20-30); Chloride 103 mmol/L (98-107); Glucose 115 mg/dL (74-106); Magnesium 2.3 mg/dL (1.6-2.6); Potassium 3.3 mmol/L (3.5-5.1); Sodium 139 mmol/L (136-145); Total Protein 5.5 g/dL (5.7-8.2)
[2023-08-02 06:54] LABS: Base Excess 3.8 mmol/L (-2.0-2.0)
[2023-08-02] MEDS: POTASSIUM EFFERVESENT TAB 25 MEQ GT ONE (07:44)
[2023-08-02] MEDS: amLODIPine BESYLATE 5 MG TAB PO SCH (09:47)
[2023-08-02] MEDS: RIOCIGUAT 2 MG GT SCH (11:05)
[2023-08-02] MEDS: FUROSEMIDE 20 MG/2 ML VIAL IV ONE (14:49)
[2023-08-02 15:16] LABS: Base Excess 4.2 mmol/L (-2.0-2.0)
[2023-08-02 15:17] LABS: Base Excess 1.4 mmol/L (-2.0-2.0)
[2023-08-02] MEDS: IPRATROPIUM BROM 0.5 MG/2.5ML INH SOL NEB SCH (17:55)
[2023-08-02] MEDS: LEVALBUTEROL HCL 1.25 MG/3 ML NEB NEB SCH (17:55)
[2023-08-02] MEDS: CEFEPIME 1GM/ 50ML 50 ML IV SCH (21:26)
[2023-08-03] VITALS (38 sets, daily range): BP systolic 127–215; BP diastolic 61–87; PULSE 8–121; RESP 11–25; TEMP 98.1–100.1; O2SAT 87–100
[2023-08-03] MEDS: TEMAZEPAM 15 MG CAP PO ONE
[2023-08-03 03:36] LABS: Basophils # (auto) 0 10 ^3/uL (0-0.2); Basophils % (auto) 0.2 % (0.0-2.0); Eosinophils # (auto) 0 10 ^3/uL (0-0.8); Eosinophils % (auto) 0.1 % (0.0-7.0); Hematocrit 31.6 % (36.0-46.0); Hemoglobin 9.6 g/dL (12.2-16.2); Lymphocytes # (auto) 2.5 10 ^3/uL (0.4-5.4); Lymphocytes % (auto) 20.8 % (10.0-50.0); Mean Corpuscular Hemoglobin 24.8 pg (28.0-32.0); Mean Corpuscular Hgb Conc. 30.3 g/dL (32.0-36.0); Mean Corpuscular Volume 81.6 fL (80.0-100.0); Monocytes # (auto) 1.5 10 ^3/uL (0-1.3); Monocytes % (auto) 12.4 % (0.0-12.0); Neutrophils # (auto) 8.1 10 ^3/uL (1.6-8.6); Neutrophils % (auto) 66.5 % (37.0-80.0); Nucleated Red Blood Cells % 0.1 %; Red Blood Cells 3.87 10^6/uL (4.0-5.20); Red Cell Distribution Width 20.1 % (11.8-14.3); White Blood Cell 12.2 10^3/uL (4.4-10.8)
[2023-08-03 04:02] LABS: Alanine Aminotransferase 27 U/L (7-40); Albumin 4.3 g/dL (3.2-4.8); Alkaline Phosphatase 38 U/L (46-116); Anion Gap 7 (5-15); Aspartate Aminotransferase 26 U/L (13-40); BUN/Creatinine Ratio 37.8 (10.0-20.0); Bilirubin, Total 0.7 mg/dL (0.2-1.0); Blood Urea Nitrogen 34 mg/dL (9-23); Calcium 9.6 mg/dL (8.7-10.4); Carbon Dioxide 31 mmol/L (20-30); Chloride 102 mmol/L (98-107); Glucose 99 mg/dL (74-106); Magnesium 1.9 mg/dL (1.6-2.6); Potassium 3.3 mmol/L (3.5-5.1); Sodium 140 mmol/L (136-145); Total Protein 6.9 g/dL (5.7-8.2)
[2023-08-03] MEDS: POTASSIUM CHLORIDE 60 MEQ, LIDOCAINE 1% (LOCAL ANESTH.) 6 ML in SODIUM CHL 0.9% 500 ML IV ONE (08:28)
[2023-08-03] MEDS: MAGNESIUM SULFATE 1GM/100ML 100 ML IV ONE (09:07)
[2023-08-03] MEDS: ENALAPRILAT 1.25 MG/ML-1ML VIAL IV PRN (09:07)
[2023-08-03] MEDS: FLUCONAZOLE 200MG/100ML 100 ML IV ONE (16:44)
[2023-08-04] VITALS (14 sets, daily range): BP systolic 58–157; BP diastolic 33–78; PULSE 73–104; RESP 15–23; TEMP 97.7–99.5; O2SAT 94–99
[2023-08-04] MEDS: ACETAMINOPHEN 325 MG TAB PO PRN (03:18)
[2023-08-04] MEDS ORDERED: IPRATROPIUM BROM 0.5 MG/2.5ML INH SOL NEB PRN (06:00)
[2023-08-04] MEDS ORDERED: LEVALBUTEROL HCL 1.25 MG/3 ML NEB NEB PRN (06:00)
[2023-08-04 06:31] LABS: Basophils # (auto) 0 10 ^3/uL (0-0.2); Basophils % (auto) 0.2 % (0.0-2.0); Eosinophils # (auto) 0 10 ^3/uL (0-0.8); Eosinophils % (auto) 0.2 % (0.0-7.0); Hematocrit 35.1 % (36.0-46.0); Hemoglobin 10.6 g/dL (12.2-16.2); Lymphocytes # (auto) 1.7 10 ^3/uL (0.4-5.4); Mean Corpuscular Hemoglobin 25.5 pg (28.0-32.0); Mean Corpuscular Hgb Conc. 30.3 g/dL (32.0-36.0); Mean Corpuscular Volume 84.3 fL (80.0-100.0); Monocytes # (auto) 1.3 10 ^3/uL (0-1.3); Monocytes % (auto) 12.1 % (0.0-12.0); Neutrophils # (auto) 7.4 10 ^3/uL (1.6-8.6); Neutrophils % (auto) 71.5 % (37.0-80.0); Nucleated Red Blood Cells % 0.2 %; Red Blood Cells 4.17 10^6/uL (4.0-5.20); Red Cell Distribution Width 20.5 % (11.8-14.3); White Blood Cell 10.4 10^3/uL (4.4-10.8)
[2023-08-04 06:34] LABS: Alanine Aminotransferase 25 U/L (7-40); Albumin 3.8 g/dL (3.2-4.8); Alkaline Phosphatase 39 U/L (46-116); Anion Gap 8 (5-15); Aspartate Aminotransferase 21 U/L (13-40); Calcium 9.1 mg/dL (8.7-10.4); Carbon Dioxide 28 mmol/L (20-30); Chloride 104 mmol/L (98-107); Glucose 138 mg/dL (74-106); Potassium 3.4 mmol/L (3.5-5.1); Sodium 140 mmol/L (136-145)
[2023-08-04 06:35] LABS: BUN/Creatinine Ratio 37.9 (10.0-20.0); Bilirubin, Total 0.8 mg/dL (0.2-1.0); Blood Urea Nitrogen 36 mg/dL (9-23)
[2023-08-04 06:38] LABS: Total Protein 6.3 g/dL (5.7-8.2)
[2023-08-04] MEDS: FLUCONAZOLE 200MG/100ML 100 ML IV SCH (09:21)
[2023-08-04] MEDS: LORazepam 2MG/ML-1ML VIAL ONE ×2 (09:53→10:20)
[2023-08-04] MEDS: LORazepam 2MG/ML-1ML VIAL IM ONE ×3 (09:57→10:10)
[2023-08-04 10:13] LABS: Base Excess 2.2 mmol/L (-2.0-2.0)
[2023-08-04] MEDS: levETIRAcetam 1000 mg/100ml 100 ML IV ONE (10:14)
[2023-08-04] MEDS ORDERED: levETIRAcetam 1000 mg/100ml 100 ML IV ONE (10:15)
[2023-08-04] MEDS: SODIUM CHLORIDE 0.9% 500 ML IV ONE (10:20)
[2023-08-04] MEDS: SODIUM BICARB 8.4% 50Meq/50ml SYR Vial IV ONE (10:46)
[2023-08-04] MEDS ORDERED: LORazepam 2MG/ML-1ML VIAL IV PRN (15:15)
[2023-08-04] MEDS ORDERED: levETIRAcetam 1000 mg/100ml 100 ML IV SCH (22:00)
[2023-08-05] VITALS (9 sets, daily range): BP systolic 110–148; BP diastolic 55–90; PULSE 74–118; RESP 16–20; TEMP 97–99.5; O2SAT 96–98
[2023-08-05] MEDS: MORPHINE SULFATE INJ 2 MG/ml SYRG IV PRN ×2 (03:01→16:50)
[2023-08-05 05:52] LABS: Basophils # (auto) 0 10 ^3/uL (0-0.2); Eosinophils # (auto) 0.1 10 ^3/uL (0-0.8); Hemoglobin 9.7 g/dL (12.2-16.2); Lymphocytes % (auto) 12.8 % (10.0-50.0); Mean Corpuscular Volume 84.4 fL (80.0-100.0); Red Cell Distribution Width 19.8 % (11.8-14.3)
[2023-08-05 05:58] LABS: Anion Gap 8 (5-15); Basophils % (auto) 0.1 % (0.0-2.0); Calcium 8.9 mg/dL (8.5-10.1); Carbon Dioxide 31 mmol/L (20-30); Chloride 107 mmol/L (98-107); Hematocrit 32.3 % (36.0-46.0); Lymphocytes # (auto) 1.5 10 ^3/uL (0.4-5.4); Mean Corpuscular Hemoglobin 25.5 pg (28.0-32.0); Mean Corpuscular Hgb Conc. 30.2 g/dL (32.0-36.0); Monocytes % (auto) 9.1 % (0.0-12.0); Neutrophils # (auto) 8.8 10 ^3/uL (1.6-8.6); Nucleated Red Blood Cells % 0.2 %; Potassium 3.3 mmol/L (3.5-5.1); Red Blood Cells 3.83 10^6/uL (4.0-5.20); White Blood Cell 11.4 10^3/uL (4.4-10.8)
[2023-08-05 06:04] LABS: BUN/Creatinine Ratio 37.3 (10.0-20.0); Blood Urea Nitrogen 38 mg/dL (9-23); Glucose 103 mg/dL (74-106)
[2023-08-05 06:05] LABS: Sodium 146 mmol/L (136-145)
[2023-08-05] MEDS: CEFEPIME 1GM/ 50ML 50 ML IV SCH (19:43)
[2023-08-06] VITALS (8 sets, daily range): BP systolic 110–136; BP diastolic 42–58; PULSE 78–107; RESP 17–18; TEMP 97.4–100.5; O2SAT 95–99
[2023-08-06 06:28] LABS: Basophils # (auto) 0 10 ^3/uL (0-0.2); Basophils % (auto) 0.1 % (0.0-2.0); Eosinophils # (auto) 0 10 ^3/uL (0-0.8); Mean Corpuscular Hgb Conc. 30.1 g/dL (32.0-36.0); Monocytes # (auto) 0.9 10 ^3/uL (0-1.3)
[2023-08-06 06:30] LABS: Hematocrit 31.5 % (36.0-46.0); Hemoglobin 9.5 g/dL (12.2-16.2); Lymphocytes # (auto) 1.2 10 ^3/uL (0.4-5.4); Lymphocytes % (auto) 9.7 % (10.0-50.0); Mean Corpuscular Hemoglobin 25.8 pg (28.0-32.0); Mean Corpuscular Volume 85.6 fL (80.0-100.0); Monocytes % (auto) 7.9 % (0.0-12.0); Neutrophils # (auto) 9.9 10 ^3/uL (1.6-8.6); Neutrophils % (auto) 82.3 % (37.0-80.0); Red Blood Cells 3.68 10^6/uL (4.0-5.20); Red Cell Distribution Width 19.5 % (11.8-14.3)
[2023-08-07] VITALS (11 sets, daily range): BP systolic 98–141; BP diastolic 26–52; PULSE 73–89; RESP 16–21; TEMP 97.4–98.9; O2SAT 95–100
[2023-08-07 06:54] LABS: Basophils # (auto) 0 10 ^3/uL (0-0.2); Eosinophils # (auto) 0.2 10 ^3/uL (0-0.8); Eosinophils % (auto) 1.5 % (0.0-7.0); Hemoglobin 8.4 g/dL (12.2-16.2); Mean Corpuscular Volume 84.9 fL (80.0-100.0)
[2023-08-07 06:56] LABS: Basophils % (auto) 0.1 % (0.0-2.0); Hematocrit 27.8 % (36.0-46.0); Lymphocytes # (auto) 1.9 10 ^3/uL (0.4-5.4); Lymphocytes % (auto) 14.6 % (10.0-50.0); Mean Corpuscular Hemoglobin 25.6 pg (28.0-32.0); Mean Corpuscular Hgb Conc. 30.1 g/dL (32.0-36.0); Monocytes # (auto) 1.1 10 ^3/uL (0-1.3); Monocytes % (auto) 8.3 % (0.0-12.0); Neutrophils # (auto) 9.8 10 ^3/uL (1.6-8.6); Neutrophils % (auto) 75.5 % (37.0-80.0); Red Blood Cells 3.27 10^6/uL (4.0-5.20); Red Cell Distribution Width 19.4 % (11.8-14.3); White Blood Cell 12.9 10^3/uL (4.4-10.8)
[2023-08-07] MEDS: POTASSIUM EFFERVESENT TAB 25 MEQ PO ONE (11:21)
[2023-08-07] MEDS: DOXYCYCLINE 100 MG TAB/CAP PO SCH (11:21)
[2023-08-07] MEDS: Glucerna Carbsteady SHAKE Vanilla 8oz PO SCH (13:44)
[2023-08-07] MEDS ORDERED: ACETAMINOPHEN 500 MG TAB PO PRN (15:00)
[2023-08-07] MEDS: ACETAMINOPHEN 325 MG TAB PO PRN (15:11)
[2023-08-07 15:21] LABS: Base Excess 8.7 mmol/L (-2.0-2.0)
[2023-08-07] MEDS: PIPERACILLIN-TAZOB 3.375GM 100 ML IV ONE (16:41)
[2023-08-07] MEDS: PANTOPRAZOLE 40 MG/10 ML VIAL INJ IV ONE (16:41)
[2023-08-07] MEDS ORDERED: ACETAMINOPHEN 325 MG TAB PO PRN (16:45)
[2023-08-07 17:11] LABS: Urine Bacteria None Seen /hpf (None Seen)
[2023-08-07 17:29] LABS: Urine Blood 1+ /uL (Negative); Urine Clarity Clear (Clear); Urine Color Yellow (Yellow); Urine Hyaline Cast FEW /lpf (0 - 2); Urine Mucus FEW (None Seen); Urine Protein, UAD 1+ (Negative); Urine Specific Gravity 1.018 (1.001-1.035); Urine Urobilinogen Normal (Negative); Urine WBC <1 /hpf (0 - 5)
[2023-08-07] MEDS: NYSTATIN (MOUTH-THROAT) 500,000 UNITS/5 ML SUSP MT SCH (17:59)
[2023-08-07] MEDS: ALBUTEROL SULF 2.5 MG/0.5ML(0.5%) NEB SOLN NEB SCH (20:18)
[2023-08-07] MEDS: IPRATROPIUM BROM 0.5 MG/2.5ML INH SOL NEB SCH (20:18)
[2023-08-07 20:58] LABS: Alanine Aminotransferase 16 U/L (7-40); Albumin 3.1 g/dL (3.2-4.8); Alkaline Phosphatase 39 U/L (46-116); Anion Gap 2 (5-15); Aspartate Aminotransferase 24 U/L (13-40); BUN/Creatinine Ratio 37.1 (10.0-20.0); Bilirubin, Total 0.6 mg/dL (0.2-1.0); Blood Urea Nitrogen 33 mg/dL (9-23); Calcium 8.7 mg/dL (8.5-10.1); Carbon Dioxide 34 mmol/L (20-30); Chloride 103 mmol/L (98-107); Glucose 176 mg/dL (74-106); Potassium 4.5 mmol/L (3.5-5.1); Sodium 139 mmol/L (136-145); Total Protein 5.3 g/dL (5.7-8.2)
[2023-08-07] MEDS: PIPERACILLIN-TAZOB 3.375GM 100 ML IV SCH (21:51)
[2023-08-08] VITALS (13 sets, daily range): BP systolic 97–136; BP diastolic 38–63; PULSE 78–87; RESP 16–20; TEMP 97.6–99.1; O2SAT 92–100
[2023-08-08 06:13] LABS: Basophils # (auto) 0 10 ^3/uL (0-0.2); Basophils % (auto) 0.1 % (0.0-2.0); Eosinophils # (auto) 0.2 10 ^3/uL (0-0.8); Lymphocytes % (auto) 13.6 % (10.0-50.0); Nucleated Red Blood Cells % 0.1 %
[2023-08-08 06:17] LABS: Eosinophils % (auto) 1.8 % (0.0-7.0); Hematocrit 30.9 % (36.0-46.0); Hemoglobin 9.3 g/dL (12.2-16.2); Lymphocytes # (auto) 1.3 10 ^3/uL (0.4-5.4); Mean Corpuscular Hemoglobin 25.3 pg (28.0-32.0); Mean Corpuscular Volume 84.4 fL (80.0-100.0); Monocytes # (auto) 0.8 10 ^3/uL (0-1.3); Monocytes % (auto) 8.5 % (0.0-12.0); Neutrophils # (auto) 7.5 10 ^3/uL (1.6-8.6); Red Blood Cells 3.66 10^6/uL (4.0-5.20); Red Cell Distribution Width 19.6 % (11.8-14.3); White Blood Cell 9.8 10^3/uL (4.4-10.8)
[2023-08-08 08:11] LABS: Base Excess 7.7 mmol/L (-2.0-2.0)
[2023-08-08 08:21] LABS: Alanine Aminotransferase 18 U/L (7-40); Albumin 3.3 g/dL (3.2-4.8); Alkaline Phosphatase 47 U/L (46-116); Anion Gap 3 (5-15); Aspartate Aminotransferase 23 U/L (13-40); BUN/Creatinine Ratio 29.2 (10.0-20.0); Blood Urea Nitrogen 26 mg/dL (9-23); Calcium 9.1 mg/dL (8.5-10.1); Carbon Dioxide 33 mmol/L (20-30); Chloride 103 mmol/L (98-107); Glucose 148 mg/dL (74-106); Potassium 4.8 mmol/L (3.5-5.1); Sodium 139 mmol/L (136-145)
[2023-08-08 08:22] LABS: Bilirubin, Total 0.6 mg/dL (0.2-1.0); Total Protein 5.7 g/dL (5.7-8.2)
[2023-08-08 08:37] LABS: Magnesium 2.1 mg/dL (1.6-2.6)
[2023-08-08] MEDS: PANTOPRAZOLE 40 MG/10 ML VIAL INJ IV SCH (09:22)
[2023-08-08] MEDS: guaiFENesin-DM 100/10mg/5ml SYR PO PRN (12:02)
[2023-08-08] MEDS: ACETAMINOPHEN 325 MG TAB PO PRN (14:52)
[2023-08-09] VITALS (14 sets, daily range): BP systolic 126–159; BP diastolic 53–72; PULSE 74–97; RESP 16–21; TEMP 98–99.1; O2SAT 93–100
[2023-08-09 07:20] LABS: Basophils # (auto) 0 10 ^3/uL (0-0.2); Hematocrit 29.3 % (36.0-46.0); Hemoglobin 9.1 g/dL (12.2-16.2); Lymphocytes # (auto) 1.6 10 ^3/uL (0.4-5.4); Monocytes # (auto) 0.6 10 ^3/uL (0-1.3)
[2023-08-09 07:24] LABS: Basophils % (auto) 0.3 % (0.0-2.0); Eosinophils # (auto) 0.1 10 ^3/uL (0-0.8); Eosinophils % (auto) 1.6 % (0.0-7.0); Lymphocytes % (auto) 19.4 % (10.0-50.0); Mean Corpuscular Hemoglobin 25.7 pg (28.0-32.0); Mean Corpuscular Hgb Conc. 30.9 g/dL (32.0-36.0); Mean Corpuscular Volume 83.2 fL (80.0-100.0); Monocytes % (auto) 7.4 % (0.0-12.0); Neutrophils # (auto) 5.9 10 ^3/uL (1.6-8.6); Neutrophils % (auto) 71.3 % (37.0-80.0); Nucleated Red Blood Cells % 0.1 %; Red Blood Cells 3.52 10^6/uL (4.0-5.20); Red Cell Distribution Width 19.2 % (11.8-14.3); White Blood Cell 8.3 10^3/uL (4.4-10.8)
[2023-08-09 07:39] LABS: Alkaline Phosphatase 41 U/L (46-116)
[2023-08-09 07:40] LABS: Alanine Aminotransferase 15 U/L (7-40); Albumin 3.2 g/dL (3.2-4.8); Anion Gap 4 (5-15); Aspartate Aminotransferase 21 U/L (13-40); BUN/Creatinine Ratio 24.6 (10.0-20.0); Bilirubin, Total 0.6 mg/dL (0.2-1.0); Blood Urea Nitrogen 15 mg/dL (9-23); Carbon Dioxide 34 mmol/L (20-30); Chloride 102 mmol/L (98-107); Glucose 101 mg/dL (74-106); Potassium 4.3 mmol/L (3.5-5.1); Sodium 140 mmol/L (136-145); Total Protein 5.5 g/dL (5.7-8.2)
[2023-08-09 07:48] LABS: CRP High Sensitivity 12.23 mg/dL (<1.0)
[2023-08-09 10:34] LABS: Base Excess 9.4 mmol/L (-2.0-2.0)
[2023-08-10] VITALS (19 sets, daily range): BP systolic 93–165; BP diastolic 55–80; PULSE 81–115; RESP 16–21; TEMP 96.8–98.5; O2SAT 95–100
[2023-08-10] MEDS: dilTIAZem 25 MG/5 ML VIAL IV ONE (01:02)
[2023-08-10 06:14] LABS: Basophils # (auto) 0 10 ^3/uL (0-0.2); Eosinophils # (auto) 0.1 10 ^3/uL (0-0.8); White Blood Cell 7.6 10^3/uL (4.4-10.8)
[2023-08-10 06:17] LABS: Basophils % (auto) 0.4 % (0.0-2.0); Hematocrit 31.6 % (36.0-46.0); Lymphocytes # (auto) 1.4 10 ^3/uL (0.4-5.4); Lymphocytes % (auto) 18.3 % (10.0-50.0); Mean Corpuscular Hemoglobin 25.9 pg (28.0-32.0); Mean Corpuscular Hgb Conc. 31.6 g/dL (32.0-36.0); Mean Corpuscular Volume 81.9 fL (80.0-100.0); Monocytes # (auto) 0.6 10 ^3/uL (0-1.3); Monocytes % (auto) 7.6 % (0.0-12.0); Neutrophils # (auto) 5.5 10 ^3/uL (1.6-8.6); Neutrophils % (auto) 71.7 % (37.0-80.0); Red Blood Cells 3.86 10^6/uL (4.0-5.20)
[2023-08-10 06:23] LABS: Anion Gap 4 (5-15); Carbon Dioxide 34 mmol/L (20-30); Chloride 101 mmol/L (98-107); Potassium 4.1 mmol/L (3.5-5.1); Sodium 139 mmol/L (136-145)
[2023-08-10 06:24] LABS: Calcium 9.5 mg/dL (8.5-10.1)
[2023-08-10 06:29] LABS: BUN/Creatinine Ratio 15.6 (10.0-20.0); Blood Urea Nitrogen 10 mg/dL (9-23); Glucose 129 mg/dL (74-106)
[2023-08-10 06:30] LABS: Magnesium 1.8 mg/dL (1.6-2.6)
[2023-08-10] MEDS: LORazepam 2MG/ML-1ML VIAL IV PRN (06:47)
[2023-08-10] MEDS: LOSARTAN POTASSIUM 25 MG TAB PO SCH (10:00)
[2023-08-10] MEDS: PANTOPRAZOLE 40 MG TAB PO SCH (10:00)
[2023-08-10] MEDS: FUROSEMIDE 20 MG TAB PO SCH (10:00)
[2023-08-11] VITALS (13 sets, daily range): BP systolic 106–167; BP diastolic 62–81; PULSE 70–116; RESP 16–20; TEMP 97.7–98.5; O2SAT 96–100
[2023-08-11] MEDS: hydrALAZINE HCL 10 MG TAB PO PRN (17:27)
[2023-08-12] VITALS (18 sets, daily range): BP systolic 59–174; BP diastolic 28–70; PULSE 70–119; RESP 16–22; TEMP 97.5–98.2; O2SAT 92–100
[2023-08-12] MEDS: PIPERACILLIN-TAZOB 3.375GM 100 ML IV SCH (00:13)
[2023-08-12] MEDS: dilTIAZem 25 MG/5 ML VIAL IV ONE (01:06)
[2023-08-12] MEDS: levETIRAcetam 1000 mg/100ml 100 ML IV ONE (01:45)
[2023-08-12] MEDS: LORazepam 2MG/ML-1ML VIAL IV ONE (02:28)
[2023-08-12] MEDS: ALBUMIN 25% 100 ML IV ONE (06:28)
[2023-08-12 08:52] LABS: Basophils # (auto) 0 10 ^3/uL (0-0.2); Eosinophils # (auto) 0.1 10 ^3/uL (0-0.8); Eosinophils % (auto) 1.3 % (0.0-7.0); Hemoglobin 9.1 g/dL (12.2-16.2); Lymphocytes # (auto) 1.5 10 ^3/uL (0.4-5.4); Lymphocytes % (auto) 21.7 % (10.0-50.0); Mean Corpuscular Volume 84.1 fL (80.0-100.0); Monocytes # (auto) 0.5 10 ^3/uL (0-1.3)
[2023-08-12 08:55] LABS: Basophils % (auto) 0.5 % (0.0-2.0); Hematocrit 29.9 % (36.0-46.0); Mean Corpuscular Hemoglobin 25.5 pg (28.0-32.0); Mean Corpuscular Hgb Conc. 30.4 g/dL (32.0-36.0); Monocytes % (auto) 6.9 % (0.0-12.0); Neutrophils # (auto) 4.7 10 ^3/uL (1.6-8.6); Neutrophils % (auto) 69.6 % (37.0-80.0); Nucleated Red Blood Cells % 0.1 %; Red Blood Cells 3.56 10^6/uL (4.0-5.20); White Blood Cell 6.7 10^3/uL (4.4-10.8)
[2023-08-12 09:05] LABS: Chloride 103 mmol/L (98-107); Potassium 3.9 mmol/L (3.5-5.1); Sodium 142 mmol/L (136-145)
[2023-08-12 09:06] LABS: Anion Gap 6 (5-15); Calcium 9.4 mg/dL (8.5-10.1); Carbon Dioxide 33 mmol/L (20-30)
[2023-08-12 09:11] LABS: BUN/Creatinine Ratio 10.9 (10.0-20.0); Blood Urea Nitrogen 13 mg/dL (9-23); Glucose 111 mg/dL (74-106)
[2023-08-12 09:13] LABS: Albumin 3.6 g/dL (3.2-4.8)
[2023-08-12] MEDS: levETIRAcetam 1000 mg/100ml 100 ML IV SCH (12:01)
[2023-08-13] VITALS (16 sets, daily range): BP systolic 142–189; BP diastolic 43–91; PULSE 78–103; RESP 16–24; TEMP 97.7–98.7; O2SAT 94–100
[2023-08-13] MEDS ORDERED: HALOPERIDOL LACTATE 5 MG/ML INJ VIAL IM PRN (21:15)
[2023-08-13] MEDS: hydrALAZINE HCL 20 MG/ML VL IV ONE (21:20)
[2023-08-14] VITALS (15 sets, daily range): BP systolic 111–170; BP diastolic 39–72; PULSE 71–104; RESP 14–19; TEMP 97.9–98.7; O2SAT 95–100
[2023-08-14] MEDS: KETOROLAC TROMETH 30 MG/ML 1ML VIAL IV ONE (01:19)
[2023-08-14] MEDS: dilTIAZem 25 MG/5 ML VIAL IV ONE (01:58)
[2023-08-14] MEDS: LORazepam 2MG/ML-1ML VIAL IV PRN (11:17)
[2023-08-15] VITALS (17 sets, daily range): BP systolic 106–169; BP diastolic 49–79; PULSE 18–104; RESP 16–97; TEMP 97.3–98.8; O2SAT 92–100
[2023-08-15 08:40] LABS: Basophils # (auto) 0 10 ^3/uL (0-0.2); Eosinophils # (auto) 0.1 10 ^3/uL (0-0.8); Mean Corpuscular Hgb Conc. 30.3 g/dL (32.0-36.0); Monocytes # (auto) 0.4 10 ^3/uL (0-1.3); Neutrophils # (auto) 3.5 10 ^3/uL (1.6-8.6)
[2023-08-15 08:42] LABS: Basophils % (auto) 0.6 % (0.0-2.0); Eosinophils % (auto) 2.6 % (0.0-7.0); Hematocrit 29.7 % (36.0-46.0); Lymphocytes # (auto) 1.3 10 ^3/uL (0.4-5.4); Lymphocytes % (auto) 23.6 % (10.0-50.0); Mean Corpuscular Volume 82.6 fL (80.0-100.0); Monocytes % (auto) 7.8 % (0.0-12.0); Neutrophils % (auto) 65.4 % (37.0-80.0); Nucleated Red Blood Cells % 0.1 %; Red Cell Distribution Width 18.2 % (11.8-14.3); White Blood Cell 5.4 10^3/uL (4.4-10.8)
[2023-08-15 08:57] LABS: Chloride 104 mmol/L (98-107); Potassium 3.3 mmol/L (3.5-5.1); Sodium 141 mmol/L (136-145)
[2023-08-15 08:59] LABS: Carbon Dioxide 34 mmol/L (20-30)
[2023-08-15 09:00] LABS: Calcium 8.4 mg/dL (8.7-10.4)
[2023-08-15 09:04] LABS: Glucose 110 mg/dL (74-106)
[2023-08-15 09:05] LABS: Alkaline Phosphatase 34 U/L (46-116); BUN/Creatinine Ratio 16.4 (10.0-20.0); Blood Urea Nitrogen 11 mg/dL (9-23); Magnesium 1.3 mg/dL (1.6-2.6)
[2023-08-15 09:06] LABS: Alanine Aminotransferase 10 U/L (7-40); Albumin 3.2 g/dL (3.2-4.8); Aspartate Aminotransferase 15 U/L (13-40)
[2023-08-15 09:07] LABS: Bilirubin, Total 0.5 mg/dL (0.2-1.0); Total Protein 5.6 g/dL (5.7-8.2)
[2023-08-15 09:08] LABS: Anion Gap 3 (5-15)
[2023-08-15] MEDS: POTASSIUM EFFERVESENT TAB 25 MEQ PO ONE (17:51)
[2023-08-15] MEDS: MELATONIN 5 MG TAB PO SCH (21:10)
[2023-08-15] MEDS: MAGNESIUM SULFATE 1GM/100ML 100 ML IV ONE (22:21)
[2023-08-16] VITALS (14 sets, daily range): BP systolic 117–147; BP diastolic 48–83; PULSE 80–103; RESP 16–22; TEMP 97.7–98.7; O2SAT 91–100
[2023-08-16 07:04] LABS: Chloride 103 mmol/L (98-107); Potassium 3.5 mmol/L (3.5-5.1); Sodium 141 mmol/L (136-145)
[2023-08-16 07:05] LABS: Anion Gap 4 (5-15); Carbon Dioxide 34 mmol/L (20-30)
[2023-08-16 07:10] LABS: BUN/Creatinine Ratio 12.1 (10.0-20.0); Blood Urea Nitrogen 8 mg/dL (9-23); Glucose 116 mg/dL (74-106); Magnesium 1.6 mg/dL (1.6-2.6)
[2023-08-16] MEDS: MAGNESIUM OXIDE 400 MG TAB PO SCH (09:53)
[2023-08-16] MEDS: levETIRAcetam 500 MG TAB PO SCH (09:59)
[2023-08-16] MEDS: ENOXAPARIN SOD 40 MG/0.4 ML SYRINGE SC SCH (09:59)
== END 2023-08-16 20:00 | DRG 720 ==
LOC: EDBD 11:59 → ER 11:59 → OVERFLOW 13:52 → ICU WEST 23:24 → TELE-E-ADS 08-03 11:19 → TELE-EAST 08-03 15:12
PROVIDERS: ADMIT Internal Medicine; ATTEND Emergency Medicine
PROC: 5A1945Z Respiratory Ventilation, 24-96 Consecutive Hours (ICD-10-PCS; principal; 2023-07-29)
PROC: 0BH18EZ Insertion of Endotracheal Airway into Trachea, Via Natural or Artificial Opening Endoscopic (ICD-10-PCS; 2023-07-29)
PROC: 0BJ08ZZ Inspection of Tracheobronchial Tree, Via Natural or Artificial Opening Endoscopic (ICD-10-PCS; 2023-07-29)
DX: A41.9 Sepsis, unspecified organism (principal); J96.01 Acute respiratory failure with hypoxia; J69.0 Pneumonitis due to inhalation of food and vomit; G93.41 Metabolic encephalopathy; I50.23 Acute on chronic systolic (congestive) heart failure; I21.A1 Myocardial infarction type 2; J15.69 Pneumonia due to other Gram-negative bacteria; G93.1 Anoxic brain damage, not elsewhere classified; J15.9 Unspecified bacterial pneumonia; E87.3 Alkalosis; I11.0 Hypertensive heart disease with heart failure; I27.20 Pulmonary hypertension, unspecified; B37.0 Candidal stomatitis; J44.0 Chronic obstructive pulmonary disease with (acute) lower respiratory infection; J96.22 Acute and chronic respiratory failure with hypercapnia; E11.9 Type 2 diabetes mellitus without complications; D64.9 Anemia, unspecified; R56.9 Unspecified convulsions; E87.6 Hypokalemia; Z20.822 Contact with and (suspected) exposure to COVID-19; J44.1 Chronic obstructive pulmonary disease with (acute) exacerbation; E66.01 Morbid (severe) obesity due to excess calories; E83.42 Hypomagnesemia; E78.5 Hyperlipidemia, unspecified; Z90.49 Acquired absence of other specified parts of digestive tract; Z83.3 Family history of diabetes mellitus; Z88.1 Allergy status to other antibiotic agents; Z88.8 Allergy status to other drugs, medicaments and biological substances; Z79.899 Other long term (current) drug therapy; Z68.26 Body mass index [BMI] 26.0-26.9, adult; Z87.891 Personal history of nicotine dependence; Z51.5 Encounter for palliative care
CPT/HCPCS: 31500; 36415; 36600; 70450; 71045; 80048; 80053; 80061; 80307; 81001; 82040; 82306; 82607; 82728; 82805; 82962; 83036; 83540; 83550; 83605; 83735; 83880; 84100; 84132; 84439; 84443; 84481; 84484; 85014; 85018; 85025; 85610; 85730; 86141; 86850; 86900; 86901; 87040; 87070; 87081; 87086; 87205; 87426; 87804; 92610; 93005; 93306; 93971; 94002; 94003; 94640; 95819; 96365; 96366; 96375; 97110; 97116; 97163; 97530; 99291; C9113; G0378; J1450; J1885; J2001; J2185; J2250; J2543; J2704; J3480; J3490; P9047